=== PATIENT | female | born 1995 | race Caucasian/White ===

== ENCOUNTER 2022-12-02 15:04 | Emergency (ER) | payer OTHER, SELFPAY ==
--- NOTE | 2022-12-02 15:26 | ECG_ITS ---
Test Reason : PALPATATIONS Blood Pressure : / mmHG Vent. Rate : 095 BPM Atrial Rate : 095 BPM P-R Int : 116 ms QRS Dur : 070 ms QT Int : 342 ms P-R-T Axes : 039 044 008 degrees QTc Int : 429 ms Normal sinus rhythm Possible Left atrial enlargement Borderline ECG No previous ECGs available Referred By: Jeffery Garcia Electronically Signed By:Antonio Tang
--- NOTE | 2022-12-02 15:26 | ED.GENADULT ---
HPI - General Adult General Chief complaint: General Medical <BROOKLYN Santacruz - Last Filed: 12/02/22 15:33> Stated complaint: Dizziness/High heart rate <BROOKLYN Santacruz - Last Filed: 12/02/22 15:33> Time Seen by Provider: 12/02/22 21:12 <BROOKLYN Santacruz - Last Filed: 12/02/22 15:33> Source: patient <Crissy Joseph MD - Last Filed: 12/02/22 22:47> Mode of arrival: ambulatory <Crissy Joseph MD - Last Filed: 12/02/22 22:47> History of Present Illness HPI narrative: 27-year-old female who presents with fatigue, malaise and increased shortness of breath sub the past couple of days and notes that she is 20 weeks currently being followed at [facility]. Otherwise she denies any fevers but states she has had chills with some mild urinary symptoms. She denies vaginal bleeding and reports positive movement and denies abdominal cramping. <Crissy Joseph MD - Last Filed: 12/02/22 22:47> Related Data Home medications: Previous Rx's Medication Instructions Recorded nitrofurantoin 100 mg PO Q12H 7 days #14 caps 12/02/22 monohydrate/macrocrystals 100 mg capsule (Macrobid) <BROOKLYN Santacruz - Last Filed: 12/02/22 15:33> Allergies/adverse reactions: Allergies Allergy/AdvReac Type Severity Reaction Status Date / Time No Known Allergies Allergy Verified 12/02/22 15:34 <BROOKLYN Santacruz - Last Filed: 12/02/22 15:33> Review of Systems Review of Systems: Pertinent positives and negatives as stated in HPI <Crissy Joseph MD - Last Filed: 12/02/22 22:47> PMFSH Past Medical History Source: nursing notes reviewed <Crissy Joseph MD - Last Filed: 12/02/22 22:47> Social History Social History: Social History Advance Directives: No Advance Directives Information Provided: Yes <BROOKLYN Santacruz - Last Filed: 12/02/22 15:33> Physical Exam ED Vital Signs: Vital Signs - 24 hr 12/02/22 15:32 12/02/22 21:00 12/02/22 21:27 Temperature 98.0 F 98.4 F 98 F Pulse Rate 106 H 86 99 Respiratory Rate 18 18 18 Blood Pressure 110/57 L 114/65 117/59 L Pulse Oximetry 97 100 100 Oxygen Delivery Method Room Air Room Air Room Air BMI result Body Mass Index 32.2 <BROOKLYN Santacruz - Last Filed: 12/02/22 15:33> Vital Signs - 24 hr 12/02/22 15:32 12/02/22 21:00 12/02/22 21:27 Temperature 98.0 F 98.4 F 98 F Pulse Rate 106 H 86 99 Respiratory Rate 18 18 18 Blood Pressure 110/57 L 114/65 117/59 L Pulse Oximetry 97 100 100 Oxygen Delivery Method Room Air Room Air Room Air BMI result Body Mass Index 32.2 VITAL SIGNS: Reviewed. GENERAL: Well developed, well nourished, in no acute distress. HEAD: Normocephalic/atraumatic EYES: PERRLA, EOMI LUNGS: Normal breath sounds. No adventitious sounds or accessory muscle use. SpO2<100> CARDIOVASCULAR: Regular rate and rhythm without noted murmurs ABDOMEN: Soft, non-tender, gravid MUSCULOSKELETAL: No tenderness, deformities, or effusions noted on gross inspection. EXTREMITIES: No cyanosis, clubbing or edema. SKIN: Inspection of the skin reveals no rashes NEUROLOGIC: Alert and oriented x 4. Strength and sensation to light touch were grossly intact x 4. <Crissy Joseph MD - Last Filed: 12/02/22 22:47> Course Course Course Narrative: This is an RME: Additional HPI, ROS, PE not included below will be deferred to primary provider. This is a 27-year-old female currently 28 weeks (currently followed by OBGYN) presenting to the emergency department complaints of lightheadedness, fatigue, malaise, chest discomfort, palpitations this has been going on for the past few days worsening. She also reports some associated shortness of breath. Physical exam benign plan basic labs, urine. Will do viral test <BROOKLYN Santacruz - Last Filed: 12/02/22 15:33> Medications Administered Discontinued Medications Generic Name Dose Route Start Last Admin Trade Name Freq PRN Reason Stop Dose Admin Sodium Chloride 1,000 mls @ 999 mls/hr 12/02/22 15:30 12/02/22 22:10 Ns IV 12/02/22 16:30 Infused .Q1H1M ANGELIA Infusion Sodium Chloride 1,000 mls @ 999 mls/hr 12/02/22 21:00 12/02/22 21:50 Ns IV 12/02/22 22:00 999 mls/hr .Q1H1M ANGELIA Administration <BROOKLYN Santacruz - Last Filed: 12/02/22 15:33> Medications Administered Discontinued Medications Generic Name Dose Route Start Last Admin Trade Name Freq PRN Reason Stop Dose Admin Sodium Chloride 1,000 mls @ 999 mls/hr 12/02/22 15:30 12/02/22 22:10 Ns IV 12/02/22 16:30 Infused .Q1H1M ANGELIA Infusion Sodium Chloride 1,000 mls @ 999 mls/hr 12/02/22 21:00 12/02/22 21:50 Ns IV 12/02/22 22:00 999 mls/hr .Q1H1M ANGELIA Administration <Crissy Joseph MD - Last Filed: 12/02/22 22:47> Medical Decision Making Medical Decision Making MDM Narrative: 27-year-old female and after review of all investigations my interpretation is this is a female who has COVID-19 positive, hemodynamically stable not hypoxic and not febrile and also has a UTI. Patient received IV fluids and on re-evaluation states that she is feeling much better. She will receive initial antibiotics here in their emergency room and then be discharged home on remaining course with strict instructions to follow-up with her research environmental scientist. She endorses that her next appointment is 12/04. <Crissy Joseph MD - Last Filed: 12/02/22 22:47> Differential Diagnosis Please see the discussion above <Crissy Joseph MD - Last Filed: 12/02/22 22:47> Lab Data Please see the discussion above <Crissy Joseph MD - Last Filed: 12/02/22 22:47> Result Diagrams: 12/02/22 16:42 12/02/22 16:42 <BROOKLYN Santacruz - Last Filed: 12/02/22 15:33> Labs: Lab Results 12/02/22 12/02/22 12/02/22 Range/Units 16:42 16:42 16:42 WBC 8.7 (4.8-10.8) X10*3/uL RBC 3.87 L (4.20-5.50) X10*6/uL Hgb 12.2 (12.0-16.0) g/dl Hct 35.7 L (37.0-47.0) % MCV 92.2 (80.0-98.0) fL MCH 31.5 (27.0-33.0) pg MCHC 34.2 (31.0-35.0) g/dl RDW 12.7 (11.0-16.0) % Plt Count 185 (160-400) X10*3/uL MPV 10.7 (9.4-12.3) fL Immature Gran % (Auto) 0.5 H (0.0-0.4) % Neut % (Auto) 77.3 H (45-73) % Lymph % (Auto) 15.8 L (20-40) % [place] % (Auto) 5.8 (2-11) % Eos % (Auto) 0.5 (0-4) % Baso % (Auto) 0.1 (0-2) % Lymph # (Auto) 1.4 (1.2-4.9) X10*3/uL [place] # (Auto) 0.5 (0.1-1.2) X10*3/uL Eos # (Auto) 0.0 (0.0-0.4) X10*3/uL Baso # (Auto) 0.0 (0.0-0.2) X10*3/uL Abs Immat Gran (auto) 0.04 H (0.00-0.03) X10*3/uL Absolute Neuts (auto) 6.8 (2.0-8.3) x10*3/uL Absolute Nucleated RBC 0.000 (0.0-0.012) X10*3/uL Nucleated RBC % (auto) 0.0 (0.0-0.2) /100WBC Sodium 135 (135-145) mmol/L Potassium 4.0 (3.3-5.1) mmol/L Chloride 104 (96-108) mmol/L Carbon Dioxide 22 (22-29) mmol/L Anion Gap 13 (12-20) BUN 8 L (9-16) mg/dL Creatinine 0.63 (0.5-1.4) mg/dL Estim Creat Clear Calc 120.1 Estimated GFR > 60 Random Glucose 106 (60-115) mg/dL Calcium 8.8 (8.4-10.2) mg/dL Magnesium 1.7 (1.6-2.6) mg/dL Total Bilirubin 0.3 (0.0-1.0) mg/dL AST 22 (5-31) U/L ALT 19 (0-31) U/L Alkaline Phosphatase 94 (39-117) U/L Troponin I High Sens < 2.7 (<3.5-17.0) ng/L Total Protein 6.0 L (6.5-8.0) g/dL Albumin 3.4 L (3.5-5.0) g/dL Beta HCG, Quant 8435 mIU/mL Urine Color Urine Appearance Urine pH (5.0-9.0) Ur Specific [place] (1.005-1.025) Urine Protein (Neg-Trace) mg/dL Urine Glucose (UA) (Negative) mg/dL Urine Ketones (Negative) mg/dL Urine Blood (Negative) Urine Nitrite (Negative) Ur Leukocyte Esterase (Negative) Urine RBC (0-2) /HPF Urine WBC (0-5) /HPF Ur Squamous Epith Cells (0-2) /HPF Urine Bacteria (None Seen) Hyaline Casts (0-2) /LPF COVID-19 (MAME) (Negative) COVID-19 Clin Com Influenza Type A (SEBASTIAN) (Negative) Influenza Type B (SEBASTIAN) (Negative) Influenza A & B Note 12/02/22 12/02/22 12/02/22 Range/Units 16:42 16:42 20:55 WBC (4.8-10.8) X10*3/uL RBC (4.20-5.50) X10*6/uL Hgb (12.0-16.0) g/dl Hct (37.0-47.0) % MCV (80.0-98.0) fL MCH (27.0-33.0) pg MCHC (31.0-35.0) g/dl RDW (11.0-16.0) % Plt Count (160-400) X10*3/uL MPV (9.4-12.3) fL Immature Gran % (Auto) (0.0-0.4) % Neut % (Auto) (45-73) % Lymph % (Auto) (20-40) % [place] % (Auto) (2-11) % Eos % (Auto) (0-4) % Baso % (Auto) (0-2) % Lymph # (Auto) (1.2-4.9) X10*3/uL [place] # (Auto) (0.1-1.2) X10*3/uL Eos # (Auto) (0.0-0.4) X10*3/uL Baso # (Auto) (0.0-0.2) X10*3/uL Abs Immat Gran (auto) (0.00-0.03) X10*3/uL Absolute Neuts (auto) (2.0-8.3) x10*3/uL Absolute Nucleated RBC (0.0-0.012) X10*3/uL Nucleated RBC % (auto) (0.0-0.2) /100WBC Sodium (135-145) mmol/L Potassium (3.3-5.1) mmol/L Chloride (96-108) mmol/L Carbon Dioxide (22-29) mmol/L Anion Gap (12-20) BUN (9-16) mg/dL Creatinine (0.5-1.4) mg/dL Estim Creat Clear Calc Estimated GFR Random Glucose (60-115) mg/dL Calcium (8.4-10.2) mg/dL Magnesium (1.6-2.6) mg/dL Total Bilirubin (0.0-1.0) mg/dL AST (5-31) U/L ALT (0-31) U/L Alkaline Phosphatase (39-117) U/L Troponin I High Sens (<3.5-17.0) ng/L Total Protein (6.5-8.0) g/dL Albumin (3.5-5.0) g/dL Beta HCG, Quant mIU/mL Urine Color Yellow Urine Appearance Cloudy Urine pH 6.0 (5.0-9.0) Ur Specific [place] 1.020 (1.005-1.025) Urine Protein Negative (Neg-Trace) mg/dL Urine Glucose (UA) Negative (Negative) mg/dL Urine Ketones Negative (Negative) mg/dL Urine Blood Negative (Negative) Urine Nitrite Negative (Negative) Ur Leukocyte Esterase Moderate (2+) H (Negative) Urine RBC 0-2 (0-2) /HPF Urine WBC 11-20 H (0-5) /HPF Ur Squamous Epith Cells 11-20 (0-2) /HPF Urine Bacteria 1+ (None Seen) Hyaline Casts 0-2 (0-2) /LPF COVID-19 (MAME) Positive A (Negative) COVID-19 Clin Com See Note Influenza Type A (SEBASTIAN) Negative (Negative) Influenza Type B (SEBASTIAN) Negative (Negative) Influenza A & B Note See Note <BROOKLYN Santacruz - Last Filed: 12/02/22 15:33> Lab Results 12/02/22 12/02/22 12/02/22 Range/Units 16:42 16:42 16:42 WBC 8.7 (4.8-10.8) X10*3/uL RBC 3.87 L (4.20-5.50) X10*6/uL Hgb 12.2 (12.0-16.0) g/dl Hct 35.7 L (37.0-47.0) % MCV 92.2 (80.0-98.0) fL MCH 31.5 (27.0-33.0) pg MCHC 34.2 (31.0-35.0) g/dl RDW 12.7 (11.0-16.0) % Plt Count 185 (160-400) X10*3/uL MPV 10.7 (9.4-12.3) fL Immature Gran % (Auto) 0.5 H (0.0-0.4) % Neut % (Auto) 77.3 H (45-73) % Lymph % (Auto) 15.8 L (20-40) % [place] % (Auto) 5.8 (2-11) % Eos % (Auto) 0.5 (0-4) % Baso % (Auto) 0.1 (0-2) % Lymph # (Auto) 1.4 (1.2-4.9) X10*3/uL [place] # (Auto) 0.5 (0.1-1.2) X10*3/uL Eos # (Auto) 0.0 (0.0-0.4) X10*3/uL Baso # (Auto) 0.0 (0.0-0.2) X10*3/uL Abs Immat Gran (auto) 0.04 H (0.00-0.03) X10*3/uL Absolute Neuts (auto) 6.8 (2.0-8.3) x10*3/uL Absolute Nucleated RBC 0.000 (0.0-0.012) X10*3/uL Nucleated RBC % (auto) 0.0 (0.0-0.2) /100WBC Sodium 135 (135-145) mmol/L Potassium 4.0 (3.3-5.1) mmol/L Chloride 104 (96-108) mmol/L Carbon Dioxide 22 (22-29) mmol/L Anion Gap 13 (12-20) BUN 8 L (9-16) mg/dL Creatinine 0.63 (0.5-1.4) mg/dL Estim Creat Clear Calc 120.1 Estimated GFR > 60 Random Glucose 106 (60-115) mg/dL Calcium 8.8 (8.4-10.2) mg/dL Magnesium 1.7 (1.6-2.6) mg/dL Total Bilirubin 0.3 (0.0-1.0) mg/dL AST 22 (5-31) U/L ALT 19 (0-31) U/L Alkaline Phosphatase 94 (39-117) U/L Troponin I High Sens < 2.7 (<3.5-17.0) ng/L Total Protein 6.0 L (6.5-8.0) g/dL Albumin 3.4 L (3.5-5.0) g/dL Beta HCG, Quant 8435 mIU/mL Urine Color Urine Appearance Urine pH (5.0-9.0) Ur Specific [place] (1.005-1.025) Urine Protein (Neg-Trace) mg/dL Urine Glucose (UA) (Negative) mg/dL Urine Ketones (Negative) mg/dL Urine Blood (Negative) Urine Nitrite (Negative) Ur Leukocyte Esterase (Negative) Urine RBC (0-2) /HPF Urine WBC (0-5) /HPF Ur Squamous Epith Cells (0-2) /HPF Urine Bacteria (None Seen) Hyaline Casts (0-2) /LPF COVID-19 (MAME) (Negative) COVID-19 Clin Com Influenza Type A (SE[facility]STIAN) (Negative) Influenza Type B (SEBASTIAN) (Negative) Influenza A & B Note 12/02/22 12/02/22 12/02/22 Range/Units 16:42 16:42 20:55 WBC (4.8-10.8) X10*3/uL RBC (4.20-5.50) X10*6/uL Hgb (12.0-16.0) g/dl Hct (37.0-47.0) % MCV (80.0-98.0) fL MCH (27.0-33.0) pg MCHC (31.0-35.0) g/dl RDW (11.0-16.0) % Plt Count (160-400) X10*3/uL MPV (9.4-12.3) fL Immature Gran % (Auto) (0.0-0.4) % Neut % (Auto) (45-73) % Lymph % (Auto) (20-40) % [place] % (Auto) (2-11) % Eos % (Auto) (0-4) % Baso % (Auto) (0-2) % Lymph # (Auto) (1.2-4.9) X10*3/uL [place] # (Auto) (0.1-1.2) X10*3/uL Eos # (Auto) (0.0-0.4) X10*3/uL Baso # (Auto) (0.0-0.2) X10*3/uL Abs Immat Gran (auto) (0.00-0.03) X10*3/uL Absolute Neuts (auto) (2.0-8.3) x10*3/uL Absolute Nucleated RBC (0.0-0.012) X10*3/uL Nucleated RBC % (auto) (0.0-0.2) /100WBC Sodium (135-145) mmol/L Potassium (3.3-5.1) mmol/L Chloride (96-108) mmol/L Carbon Dioxide (22-29) mmol/L Anion Gap (12-20) BUN (9-16) mg/dL Creatinine (0.5-1.4) mg/dL Estim Creat Clear Calc Estimated GFR Random Glucose (60-115) mg/dL Calcium (8.4-10.2) mg/dL Magnesium (1.6-2.6) mg/dL Total Bilirubin (0.0-1.0) mg/dL AST (5-31) U/L ALT (0-31) U/L Alkaline Phosphatase (39-117) U/L Troponin I High Sens (<3.5-17.0) ng/L Total Protein (6.5-8.0) g/dL Albumin (3.5-5.0) g/dL Beta HCG, Quant mIU/mL Urine Color Yellow Urine Appearance Cloudy Urine pH 6.0 (5.0-9.0) Ur Specific [place] 1.020 (1.005-1.025) Urine Protein Negative (Neg-Trace) mg/dL Urine Glucose (UA) Negative (Negative) mg/dL Urine Ketones Negative (Negative) mg/dL Urine Blood Negative (Negative) Urine Nitrite Negative (Negative) Ur Leukocyte Esterase Moderate (2+) H (Negative) Urine RBC 0-2 (0-2) /HPF Urine WBC 11-20 H (0-5) /HPF Ur Squamous Epith Cells 11-20 (0-2) /HPF Urine Bacteria 1+ (None Seen) Hyaline Casts 0-2 (0-2) /LPF COVID-19 (MAME) Positive A (Negative) COVID-19 Clin Com See Note Influenza Type A (SEBASTIAN) Negative (Negative) Influenza Type B (SEBASTIAN) Negative (Negative) Influenza A & B Note See Note <Crissy Joseph MD - Last Filed: 12/02/22 22:47> Independent Interpretation I performed an independent interpretation of an: EKG <Crissy Joseph MD - Last Filed: 12/02/22 22:47> Interpretation: Normal sinus rhythm, HR-95, no STEMI, DE/QRS/QTC are within normal limits. <Crissy Joseph MD - Last Filed: 12/02/22 22:47> Discharge Plan Discharge Clinical Impression: , Lab test positive for detection of COVID-19 virus, UTI (urinary tract infection), Viral syndrome <BROOKLYN Santacruz - Last Filed: 12/02/22 15:33> Patient Disposition: Home, Self-Care <BROOKLYN Santacruz - Last Filed: 12/02/22 15:33> Instructions: Viral Syndrome (ED), Urinary Tract Infection in (ED), at 27 to 30 Weeks (ED), COVID-19 (Coronavirus Disease 2019) (ED) <BROOKLYN Santacruz - Last Filed: 12/02/22 15:33> Additional Instructions: 1. You must isolate for 5 days as you have been diagnosed with COVID-19. 2. Complete the entire course of antibiotics as ordered for your UTI. Increase the amount of water that you are drinking. 3. Follow-up with your research environmental scientist. Return to the ER for any worsening symptoms. <BROOKLYN Santacruz Last Filed: 12/02/22 15:33> Prescriptions: New nitrofurantoin monohyd/m-cryst [Macrobid] 100 mg capsule 100 mg PO Q12H 7 Days Qty: 14 0RF Rx Instructions: must administer with a meal/food <BROOKLYN Santacruz Last Filed: 12/02/22 15:33>
[2022-12-02 15:32] VITALS: BP 110/57; PULSE 106; RESP 18; TEMP 36.7; O2SAT 97; BMI 32.2
[2022-12-02 16:47] LABS: MANUAL DIFF FLAG NO
[2022-12-02 17:01] LABS: Basophils Percent Auto 0.1 % (0-2); COVID-19 Test Positive (Negative); Eosinophils Percent Auto 0.5 % (0-4); Hematocrit 35.7 % (37.0-47.0); Hemoglobin 12.2 g/dl (12.0-16.0); IDNOW Serial# 08D9AD1C; Imm Gran Abs Auto 0.04 X10*3/uL (0.00-0.03); Imm Gran Pct Auto 0.5 % (0.0-0.4); Lymphocytes Absolute Auto 1.4 X10*3/uL (1.2-4.9); Lymphocytes Percent Auto 15.8 % (20-40); Mean Corpuscular HGB Conc 34.2 g/dl (31.0-35.0); Mean Corpuscular Hemoglobin 31.5 pg (27.0-33.0); Mean Corpuscular Volume 92.2 fL (80.0-98.0); Mean Platelet Volume 10.7 fL (9.4-12.3); Monocytes Absolute Auto 0.5 X10*3/uL (0.1-1.2); Monocytes Percent Auto 5.8 % (2-11); Neutrophils Absolute Auto 6.8 x10*3/uL (2.0-8.3); Neutrophils Percent Auto 77.3 % (45-73); Platelet Count 185 X10*3/uL (160-400); Red Blood Count 3.87 X10*6/uL (4.20-5.50); Red Cell Distribution Width 12.7 % (11.0-16.0); White Blood Count 8.7 X10*3/uL (4.8-10.8)
[2022-12-02 17:08] LABS: IDNOW Serial# 6674DD1D; Influenza A Negative (Negative); Influenza B2 Negative (Negative)
[2022-12-02 17:09] LABS: Alanine Aminotransferase 19 U/L (0-31); Albumin Level 3.4 g/dL (3.5-5.0); Alkaline Phosphatase 94 U/L (39-117); Anion Gap 13 (12-20); Aspartate Amino Transferase 22 U/L (5-31); Bilirubin Total 0.3 mg/dL (0.0-1.0); Blood Urea Nitrogen 8 mg/dL (9-16); Calcium 8.8 mg/dL (8.4-10.2); Carbon Dioxide 22 mmol/L (22-29); Chloride 104 mmol/L (96-108); Creatinine Clr Calc Pharmacy 120.1; Estimated Glomerular Filt Rate > 60; Glucose Random 106 mg/dL (60-115); HCG Quantitative 8435 mIU/mL; Magnesium 1.7 mg/dL (1.6-2.6); Sodium 135 mmol/L (135-145)
[2022-12-02 17:16] LABS: Troponin-I High Sensitivity < 2.7 ng/L (<3.5-17.0)
--- NOTE | 2022-12-02 20:04 | MHC.EDTECH ---
pt said she not able to give urine sample at this time .
[2022-12-02 21:00] VITALS: BP 114/65; PULSE 86; RESP 18; TEMP 36.9; O2SAT 100
[2022-12-02] MEDS: 0.9 % Sodium Chloride 1,000 ML 999 ML IV ×2 (21:00→21:50)
[2022-12-02 21:08] LABS: Appearance Urine Cloudy; Color Urine Yellow; Glucose Urine UA Negative (Negative); Leukocyte Esterase Urine Moderate (2+) (Negative); Nitrite Urine Negative (Negative); UMIC TRIGGER UACC YES; Urine Blood Negative (Negative); Urine Ketones Negative (Negative); Urine Protein Negative (Neg-Trace)
[2022-12-02 21:23] LABS: Bacteria Urine 1+ (None Seen); Hyaline Casts Urine 0-2 /LPF (0-2); RBC Urine 0-2 /HPF (0-2); UACC Culture Trigger YES
[2022-12-02 21:27] VITALS: BP 117/59; PULSE 99; RESP 18; TEMP 36.6; O2SAT 100
[2022-12-02] MEDS: Nitrofurantoin Monohyd/M-Cryst 100 MG CAPSULE PO (23:12)
[2022-12-02] MEDS: Acetaminophen 325 MG TABLET 975 MG PO (23:12)
== END 2022-12-02 23:24 | disposition home or self-care (01) ==
PROVIDERS: Physician Assistant; Emergency Provider Student in an Organized Health Care Education/Training Program
DX: O98.512 Other viral diseases complicating pregnancy, second trimester (principal); U07.1 COVID-19; O23.42 Unspecified infection of urinary tract in pregnancy, second trimester; N39.0 Urinary tract infection, site not specified; Z3A.20 20 weeks gestation of pregnancy
CPT/HCPCS: 80053; 81001; 83735; 84484; 84702; 85025; 87086; 87502; 87635; 93005; 96360; 99284

== ENCOUNTER 2023-01-09 10:16 | Outpatient (REF) | payer OTHER, SELFPAY ==
[2023-01-09 13:39] LABS: MANUAL DIFF FLAG NO
[2023-01-09 13:42] LABS: Basophils Percent Auto 0.1 % (0-2); Eosinophils Absolute Auto 0.1 X10*3/uL (0.0-0.4); Eosinophils Percent Auto 0.6 % (0-4); Hematocrit 37.4 % (37.0-47.0); Hemoglobin 12.8 g/dl (12.0-16.0); Imm Gran Abs Auto 0.05 X10*3/uL (0.00-0.03); Imm Gran Pct Auto 0.6 % (0.0-0.4); Lymphocytes Absolute Auto 1.5 X10*3/uL (1.2-4.9); Lymphocytes Percent Auto 16.8 % (20-40); Mean Corpuscular HGB Conc 34.2 g/dl (31.0-35.0); Mean Corpuscular Hemoglobin 31.3 pg (27.0-33.0); Mean Corpuscular Volume 91.4 fL (80.0-98.0); Mean Platelet Volume 10.7 fL (9.4-12.3); Monocytes Absolute Auto 0.6 X10*3/uL (0.1-1.2); Monocytes Percent Auto 6.9 % (2-11); Neutrophils Absolute Auto 6.7 x10*3/uL (2.0-8.3); Platelet Count 168 X10*3/uL (160-400); Red Blood Count 4.09 X10*6/uL (4.20-5.50); Red Cell Distribution Width 12.9 % (11.0-16.0)
[2023-01-09 14:31] LABS: Alanine Aminotransferase 11 U/L (0-31); Albumin Level 3.3 g/dL (3.5-5.0); Alkaline Phosphatase 133 U/L (39-117); Anion Gap 13 (12-20); Aspartate Amino Transferase 18 U/L (5-31); Bilirubin Total 0.5 mg/dL (0.0-1.0); Blood Urea Nitrogen 6 mg/dL (9-16); Calcium 8.7 mg/dL (8.4-10.2); Carbon Dioxide 21 mmol/L (22-29); Chloride 108 mmol/L (96-108); Cholesterol 241 mg/dL; Estimated Glomerular Filt Rate > 60; Glucose Fasting 64 mg/dL (60-99); HDL Cholesterol 66 mg/dL; LDL Cholesterol Calculated 135 mg/dl; Potassium 3.8 mmol/L (3.3-5.1); Sodium 138 mmol/L (135-145); Total Protein 5.9 g/dL (6.5-8.0); Triglycerides 200 mg/dL
[2023-01-09 14:37] LABS: TSH reflex Free T4 1.15 uIU/mL (0.32-4.0)
== END 2023-01-09 10:17 | disposition home or self-care (01) ==
LOC: HO.WFDLDS 10:16
PROVIDERS: Visit Provider Nurse Practitioner Family
DX: Z34.90 Encounter for supervision of normal pregnancy, unspecified, unspecified trimester (principal)
CPT/HCPCS: 36415; 80053; 80061; 84443; 85025

== ENCOUNTER 2023-07-21 13:10 | Outpatient (AMB) | payer OTHER, SELFPAY ==
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
[2023-07-21 13:17] VITALS: BP 108/64; PULSE 67; RESP 13; TEMP 36.5; O2SAT 99; BMI 32.0
== END 2023-07-21 14:06 | disposition home or self-care (01) ==
PROVIDERS: PCP Nurse Practitioner Family; Visit Provider Nurse Practitioner Family
DX: M54.2 Cervicalgia (principal); M54.9 Dorsalgia, unspecified; Z12.4 Encounter for screening for malignant neoplasm of cervix
CPT/HCPCS: 99213

== ENCOUNTER 2023-09-28 13:03 | Outpatient (AMB) | payer OTHER, SELFPAY ==
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
--- OUTSIDE RECORDS SUMMARY | 2023-09-28 13:04 | XMS_ITS | Continuity of Care Document ---
Author Name Unknown Organization [facility] Address [address] [place] [address]- Care Team Providers Care Construction Site Manager Name Role Phone Not on Staff, PCP Primary Care Physician Unavail able Encounter [facility] [place] Date(s): 09/18/22 - 10/18/[address] [address]- Allergies, Adverse Reactions, Alerts No Known Allergies Immunizations Given and Recorded Vaccine Date Status Refusal Reason influenza virus vaccine, inactivated 08/13/22 Give n Medications Multivitamins with Folic Acid 1 mg oral tablet 1 tablet, By Mouth, Daily, # 90 tablet, 3 Refills, Maintenance, 07/30/22 13:27:00 EST, Tablet, [facility] #[id number], Partial fill upon patient request if the prescription is for a schedule II opioid drug., 1 tablet By Mouth Daily, 68.6, kg, ... Start Date: 07/30/22 Status: Ordered Problem List Condition Confirmation Course Effective Dates Status Health [facility] Informant Obese class I Confirmed Active Social History Social History Type Response Smoking Status Never (less than 100 in lifetime) entered on: 07/30/22 Sex Female Patient Care team information Care Team Personnel Name: Not on Staff, PCP Position: S Physician (General Medicine) Member Role: PCP Care Team Related Persons Name: CHANCE SAENZ Address: home [address] [place] [address]
--- OUTSIDE RECORDS SUMMARY | 2023-09-28 13:04 | XMS_ITS | Continuity of Care Document ---
Author Name Unknown Organization [facility] Address [address] [place] [address]- Care Team Providers Care Systems Test Technician Name Role Phone Not on Staff, PCP Primary Care Physician Unavail able Encounter [facility] [place] Date(s): 12/03/22 - 01/02/[address] [address]- Allergies, Adverse Reactions, Alerts No Known Allergies Immunizations Given and Recorded Vaccine Date Status Refusal Reason tetanus/diphtheria/pertussis, acel(Tdap) 12/18/22 Given influenza virus vaccine, inactivated 08/13/22 Give n Medications MiraLax oral powder for reconstitution = 17 Gm, By Mouth, Daily, dissolve in water before taking, # 255 Gm, 0 Refills, Maintenance, 12/18/22 10:07:00 EDT, REC Powder, [facility] #[id number], Partial fill upon patient request if the prescription is for a schedule II opioid drug., 17 Gm... Start Date: 12/18/22 Status: Ordered Multivitamins with Folic Acid 1 mg oral tablet 1 tablet, By Mouth, Daily, # 90 tablet, 3 Refills, Maintenance, 07/30/22 13:27:00 EST, Tablet, [facility] #[id number], Partial fill upon patient request if the [...] 01/01/23 16:27:00 EDT, Route to Pharmacy Electronically, [facility] #[id number], Partial fill upon patient request if th... Start Date: 01/01/23 Stop Date: 03/02/23 Status: Ordered Problem List Condition Confirmation Course Effective Dates Status Health [facility] Informant Obese class II Confirmed Active Social History Social History Type Response Smoking Status Never (less than 100 in lifetime) entered on: 07/30/22 Sex Female Patient Care team information Care Team Personnel Name: Not on Staff, PCP Position: [facility] Physician (General Medicine) Member Role: PCP Care Team Related Persons Name: CHNACE SAENZ Address: home [address] [place] [address]
[2023-09-28 13:05] VITALS: BP 114/62; BMI 29.3
--- NOTE | 2023-09-28 13:05 | MHC.OFFVIS ---
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 History was somewhat confusing though in retrospect she had her last period in March and she has not had a period since and this is most likely explainable by the fact that she is lactating and feeding the baby pretty exclusively by breast milk. She is in a committed relationship. She would like STI testing and she will go today. She has not complaining of any abnormal discharge. She had a primary for placenta previa but she started bleeding 1 week before her planned so that the was done on an emergency basis. She delivered in December. She said that last year she had an abnormal Pap smear with pre cancerous cells at the very end of the visit she shared that she had had a colposcopy during the and also 1 after the in February and they said that that 1 was fine. The Pap smear had already been obtained and submitted by that point. She would like to be on some method of control she currently is not using anything although she later shared that she uses condoms. She has been having sex fairly regularly most days. She says she does not remember anyone telling her that it would be grossman to not get for a good amount of time after having the primary . [facility] Medical History (Updated 09/28/23 @ 13:[address] CNM) delivery delivered Hip pain, right Neck pain Back pain Surgical History (Updated 09/28/23 @ 13:[address] CNM) Hx of section No pertinent past surgical history Social History Housing: House Patient Tobacco Use Status: Never used Tobacco e-Cigarette/Vaping Use: Never Used service: Yes Current occupational status: employed Current occupation: [employer] Cognitive needs: No Hearing needs: No Vision needs: No Female Reproductive History Menstrual Age of Menarche: 11 Duration of menses: 3-5 days Date of last menstrual period: 04/29/23 control method: none Total pregnancies: 1 Full term: 1 Number of Living Children: 1 History of abnormal pap smear: Yes Physical Exam Vital Signs: Last Vital Signs BP 114/62 09/28/23 13:05 BMI result Body Mass Index 29.3 Const General: healthy appearing, comfortable, no acute distress, well developed and alert Nutritional Appearance: average body habitus Orientation/consciousness: patient oriented x3 Limitations: no limitations HEENT Head: Yes normocephalic Neck Neck: Yes normal visual inspection Chest Chest palpation & inspection: normal inspection of the chest Breast/axilla inspection: normal inspection of the breasts and normal inspection of the axillae Breast/axilla palpation: normal palpation of the breasts and normal palpation of the axillae Resp Effort & Inspection: normal respiratory effort GI Inspection: Yes normal to inspection, No Abdominal wall edema and No distended Palpation (GI): Soft to palpation and nontender Other: Normal external exam vagina pink moist cervix appears parous pink smooth normal appearing mucus. Cervix is very posterior uterus is anteverted but they also very posterior in positioning adnexa not enlarged nontender good tone with Kegel. She has a small keloided low transverse scar General: Yes bladder normal to palpation External Female Exam: normal external appearance and normal appearance of the urethra Speculum Exam - Vagina: normal appearance of the vagina, normal palpation and normal vaginal discharge Speculum Exam - Cervix: normal appearance of the cervix, normal palpation and nontender Bimanual exam- vagina & uterus: normal bimanual exam, normal palpation, uterine size normal, bladder normal to palpation, consistency normal, normal palpation, uterine mobility normal, uterine shape normal, No Cervical tenderness present, non-tender and no cervical motion tenderness Bimanual Exam- Adnexa, other: normal adnexae, no masses, normal and No adnexal tenderness Neuro General: patient oriented x3 Results AMB Test Urine AMB Test Urine Negative Last Edit by CONCETTA Bynum on 09/28/23 14:15 Results Reviewed Results Reviewed: Laboratory Last Values Tst Clinic Negative 09/28/23 13:45 Assessment & Plan Assessment & Plan (1) Pap smear for cervical cancer screening: Comment: States she was told she had precancerous cells at [facility] last year. Code(s): Z12.4 - Encounter for screening for malignant neoplasm of cervix (2) Encounter for screening examination for sexually transmitted disease: Code(s): Z11.3 - Encounter for screening for infections with a predominantly sexual mode of transmission (3) Well woman exam with routine gynecological exam: Code(s): Z01.419 - Encounter for gynecological examination (general) (routine) without abnormal findings (4) Hx of section: Comment: One week before planned for placenta previa March 2023. Code(s): Z98.891 - History of uterine scar from previous surgery (5) Lactating mother: Comment: Wants control and wants to not suppress her breast milk supply will start on POPs if test is negative and have her repeat it in 2 weeks. Code(s): Z39.1 - Encounter for care and examination of lactating mother (6) BCP ( control pills) initiation: Code(s): Z30.011 - Encounter for initial prescription of contraceptive pills Plan -----Discussed in this visit the following: healthy balanced diet, regular and consistent exercise, getting recommended health screens, doing the best she can for her particular health concerns, kegel exercises, pap smear screening and followup recommendations, mammography screening and SBE, normal changes in cycles in her life stage--- . Her history came out at different points during the visit with full details of her abnormal Pap smear follow-up at [facility] coming at the very end as she was leaving. Pap smear has already been sent and submitted on the basis of her history of abnormal Pap smear last year with pre cancerous cells. Will request records from [facility] as well. Discussed recommendations that it is best to wait at least 18 months between pregnancies if she wanted to have a chance of having a vaginal for the next delivery. She would like to not get right away she said initially she was using nothing though at the very end she also shared that she is using condoms. She is also nursing her baby fairly exclusively. We did a test here and it is negative given all of this and her desire to contraceptive I am prescribing progestin only control pills for her and she can start now and then repeat a test at home in 2 weeks and if it is still negative she can continue on with no worries or concerns about . Reviewed how to take the pill and that if she ever misses a pill she may spot and increases itch her chance of getting . She works out at [employer] in [place] and is trying to keep herself in shape. We will see her in 3 months and I reviewed danger signs of OCPs.. Orders: Orders CT NG by PCR Today Z11.3 - Encounter for screening for infections with a predominantly sexual mode of transmission Pap Smear Today Z12.4 - Encounter for screening for malignant neoplasm of cervix Syphilis Screen Today Z01.419 - Encounter for gynecological examination (general) (routine) without abnormal findings, Z11.3 - Encounter for screening for infections with a predominantly sexual mode of transmission, Z12.4 - Encounter for screening for malignant neoplasm of cervix, Z30.011 - Encounter for initial prescription of contraceptive pills, Z39.1 - Encounter for care and examination of lactating mother, Z98.891 - History of uterine scar from previous surgery AMB HCG Urine Test Today Z32.02 - Encounter for test, result negative Bacterial Vaginosis Panel Today Z11.3 - Encounter for screening for infections with a predominantly sexual mode of transmission Hepatitis B Surface Antigen Today Z01.419 - Encounter for gynecological examination (general) (routine) without abnormal findings, Z11.3 - Encounter for screening for infections with a predominantly sexual mode of transmission, Z12.4 - Encounter for screening for malignant neoplasm of cervix, Z30.011 - Encounter for initial prescription of contraceptive pills, Z39.1 - Encounter for care and examination of lactating mother, Z98.891 - History of uterine scar from previous surgery Hepatitis C Antibody Today Z01.419 - Encounter for gynecological examination (general) (routine) without abnormal findings, Z11.3 - Encounter for screening for infections with a predominantly sexual mode of transmission, Z12.4 - Encounter for screening for malignant neoplasm of cervix, Z30.011 - Encounter for initial prescription of contraceptive pills, Z39.1 - Encounter for care and examination of lactating mother, Z98.891 - History of uterine scar from previous surgery HIV Ab/Ag Today Z01.419 - Encounter for gynecological examination (general) (routine) without abnormal findings, Z11.3 - Encounter for screening for infections with a predominantly sexual mode of transmission, Z12.4 - Encounter for screening for malignant neoplasm of cervix, Z30.011 - Encounter for initial prescription of contraceptive pills, Z39.1 - Encounter for care and examination of lactating mother, Z98.891 - History of uterine scar from previous surgery Medications: New norethindrone (contraceptive) 0.35 mg PO DAILY 84 tabs 3RF PNV,calcium [id number] acid 27 mg iron- 1 mg ( Vitamins Plus Low Iron) 1 tab PO DAILY 90 tabs 2RF Coding Level of Care Code New Pt Prev Care 18-39yr([id number] Diagnoses Pap smear for cervical cancer screening Z12.4 Encounter for screening examination for sexually transmitted disease Z11.3 Well woman exam with routine gynecological exam Z01.419 Hx of section Z98.891 Lactating mother Z39.1 BCP ( control pills) initiation Z30.011
--- OUTSIDE RECORDS SUMMARY | 2023-09-28 13:05 | XMS_ITS | Continuity of Care Document ---
Author Name Unknown Organization [facility] Address [address] [place] [id number]- Care Team Providers Care Tie Mill Operator Name Role Phone Not on Staff, PCP Primary Care Physician Unavail able Encounter [facility] [place] Date(s): 12/17/22 - 01/16/[address] [address]- Allergies, Adverse Reactions, Alerts No Known Allergies Immunizations Given and Recorded Vaccine Date Status Refusal Reason tetanus/diphtheria/pertussis, acel(Tdap) 12/18/22 Given influenza virus vaccine, inactivated 08/13/22 Give n Medications MiraLax oral powder for reconstitution = 17 Gm, By Mouth, Daily, dissolve in water before taking, # 255 Gm, 0 Refills, Maintenance, 12/18/22 10:07:00 EDT, REC Powder, [facility] #[id number], Partial fill upon patient request if the prescription is for a schedule II opioid drug., 17 Gm... Start Date: 12/18/22 Status: Ordered Multivitamins with Folic Acid 1 mg oral tablet 1 tablet, By Mouth, Daily, # 90 tablet, 3 Refills, Maintenance, 07/30/22 13:27:00 EST, Tablet, [facility] #[id number], Partial fill upon patient request if the [...] 01/01/23 16:27:00 EDT, Route to Pharmacy Electronically, [facility] #[id number], Partial fill upon patient request if th... [...] Role: PCP Care Team Related Persons Name: LETTY CHANCE Address: home [address] [place] [address]
--- OUTSIDE RECORDS SUMMARY | 2023-09-28 13:05 | XMS_ITS | Continuity of Care Document ---
Author Name Unknown Organization [facility] Address [address] [place] [address]- Care Team Providers Care Open Soaper Tender Name Role Phone Not on Staff, PCP Primary Care Physician Unavail able Encounter [facility] [place] Date(s): 01/01/23 - 01/31/23 [facility] [address] [place] [address] Attending Physician: Cass Crawford Admitting Physician: Cass Crawford Referring Physician: AdmtrCass Allergies, Adverse Reactions, Alerts No Known Allergies Immunizations Given and Recorded Vaccine Date Status Refusal Reason tetanus/diphtheria/pertussis, acel(Tdap) 12/18/22 Given influenza virus vaccine, inactivated 08/13/22 Give n Medications acetaminophen 325 mg oral tablet 650 mg, By Mouth, Every 4 hours, (1-3), may give 325mg per patient preference and re-dose with 325mg within 4 hours, if needed. Patient should only receive a total of 650mg of Acetaminophen every 4 hours., # 50 tablet, Refills 0, Tot. Refills 0, Shawna... Start Date: 01/26/23 Status: Ordered docusate sodium 100 mg oral capsule 1 capsule = 100 mg, By Mouth, 2 times a day, # 60 capsule, 0 Refills, Maintenance, 01/26/23 2:50:00EDT, Capsule, [facility] #[id number], Partial fill upon patient request if the prescription isfor a schedule II opioid drug., 150, cm, 01/26/23 0... Start Date: 01/26/23 Status: Ordered MiraLax oral powder for reconstitution = 17 Gm, By Mouth, Daily, dissolve in water before taking, # 255 Gm, 0 Refills, Maintenance, 12/18/22 10:07:00 EDT, REC Powder, [facility] #[id number], Partial fill upon patient request if the prescription is for a schedule II opioid drug., 17 Gm... Start Date: 12/18/22 Status: Ordered oxyCODONE 5 mg oral tablet 5 mg, 1, tablet, By Mouth, Every 3 hours, PRN, for severe post-operative pain (7-10), # 10 tablet, Refills 0, Tot. Refills 0, Maintenance, Pain , Severe, 01/26/23 2:51:00 EDT, Route to Pharmacy Electronically, [facility] #[id number], Partial fill... Start Date: 01/26/23 Status: Ordered Multivitamins with Folic Acid 1 mg oral tablet 1 tablet, By Mouth, Daily, # 90 tablet, 3 Refills, Maintenance, 07/30/22 13:27:00 EST, Tablet, [facility] #[id number], Partial fill upon patient request if the prescription is for a schedule II opioid drug., 1 tablet By Mouth Daily, 68.6, kg, ... Start Date: 07/30/22 Status: Ordered simethicone 80 mg oral tablet, chewable 80 mg, Chew, 3 times a day, PRN, # 48 tablet, Refills 0, Tot. Refills 0, Maintenance, Gas, 232:51:00 EDT, Route to Pharmacy Electronically, [facility] #[id number], Partial fill upon patient request if the prescription is for a schedule II... Start Date: 01/26/23 Status: Ordered Problem List Condition Confirmation Course [...] 100 in lifetime) entered on: 07/30/22 Sex Patient Care team information Care Team Personnel Name: Not on Staff, PCP Position: S Physician (General Medicine) Member Role: PCP Care Team Related Persons Name: CHANCE SAENZ Address: [address] [address] Name: CHANCE SAENZ Address: [id number] Address: home [address] [place] [address]
--- OUTSIDE RECORDS SUMMARY | 2023-09-28 13:05 | XMS_ITS | Continuity of Care Document ---
Author Name Unknown Organization [facility] Address [address] [place] [address]- Care Team Providers Care Steel Fitter Name Role Phone Not on Staff, PCP Primary Care Physician Unavail able Encounter [facility] [place] Date(s): 01/05/23 - 02/04/23 [facility] [address] [place] [address]- Allergies, Adverse Reactions, Alerts No Known Allergies [...] capsule, 0 Refills, Maintenance, 01/26/23 2:50:00EDT, Capsule, [facility] #[id number], Partial fill upon patient request if the prescription isfor a schedule II opioid drug., 150, cm, 01/26/23 0... Start Date: 01/26/23 Status: Ordered MiraLax oral powder for reconstitution = 17 Gm, By Mouth, Daily, dissolve in water before taking, # 255 Gm, 0 Refills, Maintenance, 12/18/22 10:07:00 EDT, REC Powder, [facility] #[id number], Partial fill upon patient request if the prescription is for a schedule II opioid drug., 17 Gm... Start Date: 12/18/22 Status: Ordered oxyCODONE 5 mg oral tablet 5 mg, 1, tablet, By Mouth, Every 3 hours, PRN, for severe post-operative pain (7-10), # 10 tablet, Refills 0, Tot. Refills 0, Maintenance, Pain , Severe, 01/26/23 2:51:00 EDT, Route to Pharmacy Electronically, [facility] #[id number], Partial fill... Start Date: 01/26/23 Status: Ordered Multivitamins with Folic Acid 1 mg oral tablet 1 tablet, By Mouth, Daily, # 90 tablet, 3 Refills, Maintenance, 07/30/22 13:27:00 EST, Tablet, [facility] #[id number], Partial fill upon patient request if the prescription is for a schedule II opioid drug., 1 tablet By Mouth Daily, 68.6, kg, ... Start Date: 07/30/22 Status: Ordered simethicone 80 mg oral tablet, chewable 80 mg, Chew, 3 times a day, PRN, # 48 tablet, Refills 0, Tot. Refills 0, Maintenance, Gas, 232:51:00 EDT, Route to Pharmacy Electronically, [facility] #[id number], Partial fill upon patient request if the [...] PCP Care Team Related Persons Name: CHANCE TRUONG III Address: [id number] Address: home [address] [place] [address] Name: CHANCE SAENZ Address: [address] [address]
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
--- OUTSIDE RECORDS SUMMARY | 2023-09-28 13:05 | XMS_ITS | Continuity of Care Document ---
Author Name Unknown Organization [facility] Address [address] [place] [phone]- Care Team Providers Care Book Trimmer Name Role Phone Not on Staff, PCP Primary Care Physician Unavail able [place] [facility] [place]/23 - 02/04/[address] [address]- Allergies, Adverse Reactions, Alerts No Known Allergies [...] capsule, 0 Refills, Maintenance, 01/26/23 2:50:00EDT, Capsule, [facility] #[id number], Partial fill upon patient request if the prescription isfor a schedule II opioid drug., 150, cm, 01/26/23 0... Start Date: 01/26/23 Status: Ordered MiraLax oral powder for reconstitution = 17 Gm, By Mouth, Daily, dissolve in water before taking, # 255 Gm, 0 Refills, Maintenance, 12/18/22 10:07:00 EDT, REC Powder, [facility] #[id number], Partial fill upon patient request if the prescription is for a schedule II opioid drug., 17 Gm... Start Date: 12/18/22 Status: Ordered oxyCODONE 5 mg oral tablet 5 mg, 1, tablet, By Mouth, Every 3 hours, PRN, for severe post-operative pain (7-10), # 10 tablet, Refills 0, Tot. Refills 0, Maintenance, Pain , Severe, 01/26/23 2:51:00 EDT, Route to Pharmacy Electronically, [facility] #[id number], Partial fill... Start Date: 01/26/23 Status: Ordered Multivitamins with Folic Acid 1 mg oral tablet 1 tablet, By Mouth, Daily, # 90 tablet, 3 Refills, Maintenance, 07/30/22 13:27:00 EST, Tablet, [facility] #[id number], Partial fill upon patient request if the prescription is for a schedule II opioid drug., 1 tablet By Mouth Daily, 68.6, kg, ... Start Date: 07/30/22 Status: Ordered simethicone 80 mg oral tablet, chewable 80 mg, Chew, 3 times a day, PRN, # 48 tablet, Refills 0, Tot. Refills 0, Maintenance, Gas, 232:51:00 EDT, Route to Pharmacy Electronically, [facility] #[id number], Partial fill upon patient request if the [...] Related Persons Name: CHANCE TRUONG III Address: [place] [address] Address: [address] Name: CHANCE SAENZ Address: home [address] [place] [address]
--- OUTSIDE RECORDS SUMMARY | 2023-09-28 13:05 | XMS_ITS | Continuity of Care Document ---
Author Name Unknown Organization [facility] Address [address] [place] [phone] Care Team Providers Care Director Of Employee Development Name Role Phone Not on Staff, PCP Primary Care Physician Unavail able [place] [facility] [place] Date(s): 09/02/22 - 10/02/22 [facility] [address] [address]- Allergies, Adverse Reactions, Alerts No Known Allergies Immunizations Given and Recorded Vaccine Date Status Refusal Reason influenza virus vaccine, inactivated 08/13/22 Give n Medications Multivitamins with Folic Acid 1 mg oral tablet 1 tablet, By Mouth, Daily, # 90 tablet, 3 Refills, Maintenance, 07/30/22 13:27:00 EST, Tablet, [facility] #[id number], Partial fill upon patient request if the [...] Persons Name: CHANCE SAENZ Address: home [address] [place] [address]
--- OUTSIDE RECORDS SUMMARY | 2023-09-28 13:05 | XMS_ITS | Continuity of Care Document ---
Author Name Unknown Organization [facility] Address [address] [place] [phone]- Care Team Providers Care Butt Maker Name Role Phone Not on Staff, PCP Primary Care Physician Unavail able Encounter [place] Date(s): 12/26/22 - 01/25/[address] [address]- Allergies, Adverse Reactions, Alerts No Known Allergies [...] capsule, 0 Refills, Maintenance, 01/26/23 2:50:00EDT, Capsule, [facility] #[id number], Partial fill upon patient request if the prescription isfor a schedule II opioid drug., 150, cm, 01/26/23 0... Start Date: 01/26/23 Status: Ordered MiraLax oral powder for reconstitution = 17 Gm, By Mouth, Daily, dissolve in water before taking, # 255 Gm, 0 Refills, Maintenance, 12/18/22 10:07:00 EDT, REC Powder, [facility] #[id number], Partial fill upon patient request if the prescription is for a schedule II opioid drug., 17 Gm... Start Date: 12/18/22 Status: Ordered oxyCODONE 5 mg oral tablet 5 mg, 1, tablet, By Mouth, Every 3 hours, PRN, for severe post-operative pain (7-10), # 10 tablet, Refills 0, Tot. Refills 0, Maintenance, Pain , Severe, 01/26/23 2:51:00 EDT, Route to Pharmacy Electronically, [facility] #[id number], Partial fill... Start Date: 01/26/23 Status: Ordered Multivitamins with Folic Acid 1 mg oral tablet 1 tablet, By Mouth, Daily, # 90 tablet, 3 Refills, Maintenance, 07/30/22 13:27:00 EST, Tablet, [facility] #[id number], Partial fill upon patient request if the prescription is for a schedule II opioid drug., 1 tablet By Mouth Daily, 68.6, kg, ... Start Date: 07/30/22 Status: Ordered simethicone 80 mg oral tablet, chewable 80 mg, Chew, 3 times a day, PRN, # 48 tablet, Refills 0, Tot. Refills 0, Maintenance, Gas, 232:51:00 EDT, Route to Pharmacy Electronically, [facility] #[id number], Partial fill upon patient request if the [...] Persons Name: CHANCE SAENZ Address: home [address] [place] [address] Name: FLORI SAENZA GABRIEL Address: [id number] Address: [address] [place] [address] [place]
--- OUTSIDE RECORDS SUMMARY | 2023-09-28 13:05 | XMS_ITS | Continuity of Care Document ---
Author Name Unknown Organization [facility] Address [address] [place] [address]- Care Team Providers Care Food Sales Clerk Name Role Phone Not on Staff, PCP Primary Care Physician Unavail able [place] [facility] [place](s): 12/02/22 - 01/01/[address] [address]- Allergies, Adverse Reactions, Alerts No Known Allergies Immunizations Given and Recorded Vaccine Date Status Refusal Reason tetanus/diphtheria/pertussis, acel(Tdap) 12/18/22 Given influenza virus vaccine, inactivated 08/13/22 Give n Medications MiraLax oral powder for reconstitution = 17 Gm, By Mouth, Daily, dissolve in water before taking, # 255 Gm, 0 Refills, Maintenance, 12/18/22 10:07:00 EDT, REC Powder, [facility] #[id number], Partial fill upon patient request if the prescription is for a schedule II opioid drug., 17 Gm... Start Date: 12/18/22 Status: Ordered Multivitamins with Folic Acid 1 mg oral tablet 1 tablet, By Mouth, Daily, # 90 tablet, 3 Refills, Maintenance, 07/30/22 13:27:00 EST, Tablet, [facility] #[id number], Partial fill upon patient request if the [...] 01/01/23 16:27:00 EDT, Route to Pharmacy Electronically, [facility] #[id number], Partial fill upon patient request if th... [...] Personnel Name: Not on Staff, PCP Position: [facility] Physician (General Medicine) Member Role: PCP Care Team Related Persons Name: CHANCE SAENZ Address: home [address] [place] [address]
--- OUTSIDE RECORDS SUMMARY | 2023-09-28 13:05 | XMS_ITS | Continuity of Care Document ---
Author Name Unknown Organization [facility] Address [address] [place] [address]- Care Team Providers Care Gas Main Fitter Name Role Phone Not on Staff, PCP Primary Care Physician Unavail able Encounter [facility] Date(s): 06/25/22 - 07/25/[address] [address]- Allergies, Adverse Reactions, Alerts No Known Allergies Social History Social History Type Response Sex Female Patient Care team information Care Team Personnel Name: Not on Staff, PCP Position: S Physician (General Medicine) Member Role: PCP Care Team Related Persons Name: CHANCE SAENZ Address: home [address] [place] [address]
--- OUTSIDE RECORDS SUMMARY | 2023-09-28 13:05 | XMS_ITS | Continuity of Care Document ---
Author Name Unknown Organization [facility] ter Address [address] [place] [address]- Care Team Providers Care Reinforcement Maker Name Role Phone Not on Staff, PCP Primary Care Physician Unavail able Encounter [facility] [place] Date(s): 01/07/23 - 02/26/[address] [address]- Attending Physician: Katie Main DO Referring Physician: Katie Main DO Allergies, Adverse Reactions, Alerts No Known Allergies Immunizations Given and Recorded Vaccine Date Status Refusal Reason tetanus/diphtheria/pertussis, acel(Tdap) 12/18/22 Given influenza virus vaccine, inactivated 08/13/22 Give n Medications NuvaRing 0.015 mg-0.120 mg vaginal ring See Instructions, 1 each Vaginally Insert a new ring on day 1 and use for 3 weeks, remove for 1 week, then repeat cycle, # 3 each, 4 Refills, Maintenance, 02/23/23 15:13:00 EDT, [facility] #[id number], Partial fill upon patient request if the... Start Date: 02/23/23 Status: Ordered Multivitamins with Folic Acid 1 mg oral tablet 1 tablet, By Mouth, Daily, # 90 tablet, 3 Refills, Maintenance, 07/30/22 13:27:00 EST, Tablet, [facility] #[id number], Partial fill upon patient request if the [...] Confirmed Active Obese class II Confirmed Active exam Confirmed Active Social History Social History Type Response Smoking Status Never (less than 100 in lifetime) entered on: 07/30/22 Sex Patient Care team information Care Team Personnel Name: Not on Staff, PCP Position: [facility] Physician (General Medicine) Member Role: PCP Care Team Related Persons Name: CHANCE TRUONG Address: [address] Address: [address] Name: CHANCE SAENZ Address: [place] [address]
--- OUTSIDE RECORDS SUMMARY | 2023-09-28 13:05 | XMS_ITS | Continuity of Care Document ---
Author Name Unknown Organization [facility] Address [address] [place] [address]- Care Team Providers Care Weed Inspector Name Role Phone Not on Staff, PCP Primary Care Physician Unavail able [place] [facility] [place] 03/10/23 - 04/09/23 [facility] [address] [address]- Attending Physician: Cass Crawford Admitting Physician: Cass Crawford Referring Physician: AdmtrCass Allergies, Adverse Reactions, Alerts No Known Allergies Immunizations Given and Recorded Vaccine Date Status Refusal Reason tetanus/diphtheria/pertussis, acel(Tdap) 12/18/22 Given influenza virus vaccine, inactivated 08/13/22 Give n Medications Apri 0.15 mg-0.03 mg oral tablet 1 tablet, By Mouth, Daily, # 84 tablet, 3 Refills, Maintenance, 03/09/23 11:36:00 EDT, [facility] #[id number], Partial fill upon patient request if the prescription is for a schedule II opioid drug., 1 tablet By Mouth Daily, 150, cm, 2... Start Date: 03/09/23 Status: Ordered Multivitamins with Folic Acid 1 mg oral tablet 1 tablet, By Mouth, Daily, # 90 tablet, 3 Refills, Maintenance, 07/30/22 13:27:00 EST, Tablet, [facility] #[id number], Partial fill upon patient request if the [...] Team Related Persons Name: CHANCE TRUONG Address: [address] Address: home [address] [place] [address] Name: CHANCE SAENZ Address: [address] [address]
--- OUTSIDE RECORDS SUMMARY | 2023-09-28 13:05 | XMS_ITS | Continuity of Care Document ---
Author Name Unknown Organization [facility] ter Address [address] [place] [address]- Care Team Providers Care Equipment Service Engineer Name Role Phone Virginia RICHARDSON, Jonel Mcgrath Primary Care Physician Encounter [facility] [place] Date(s): 07/06/23 - 07/06/[address] [address]- Discharge Disposition: A-D/C Home Attending Physician: Cassius Bolton MD Admitting Physician: Cassius Bolton MD Referring Physician: Not on Staff, Referring MD Allergies, Adverse Reactions, Alerts No Known Allergies Immunizations Given and Recorded Vaccine Date Status Refusal Reason tetanus/diphtheria/pertussis, acel(Tdap) 12/18/22 Given influenza virus vaccine, inactivated 08/13/22 Give n Medications Apri 0.15 mg-0.03 mg oral tablet 1 tablet, By Mouth, Daily, # 84 tablet, 3 Refills, Maintenance, 03/09/23 11:36:00 EDT, Tablet, [facility] #[id number], Partial fill upon patient request if the prescription is for a schedule II opioid drug., 1 tablet By Mouth Daily, 150, cm, 01/30... Start Date: 03/09/23 Status: Ordered Multivitamins with Folic Acid 1 mg oral tablet 1 tablet, By Mouth, Daily, # 90 tablet, 3 Refills, Maintenance, 07/30/22 13:27:00 EST, Tablet, [facility] #[id number], Partial fill upon patient request if the [...] class II Confirmed Active exam Confirmed Active Vital Signs Most recent to oldest [Reference Range]: 1 2 Weight 74.8 kg (07/06/23 5:33 PM) 74.8 kg (07/06/23 2:40 PM) Oxygen Saturation [94-100 %] 98 % (07/06/23 2:40 PM) Pulse Rate [55-90 bpm] 60 bpm (07/06/23 2:40 PM) Blood Pressure [90-138/55-84 mm Hg] 113/ 66mm Hg (07/06/23 2:40 PM) Respiratory Rate [16-30 br/min] 18 br/mi n (07/06/23 2:40 PM) Temperature [96.8-100.4 DegF] 98.4 DegF (07/06/23 2:40 PM) Mode of Delivery (Oxygen) Room air (07/06/23 2:40 PM) Blood pressure sites Arm, left (07/06/23 2:40 PM) Temperature Route Oral (07/06/23 2:40 PM) Dry Weight 74.8 kg (07/06/23 5:33 PM) 74.8 kg (07/06/23 2:40 PM) Weight Obtained Via Standing scale (07/06/23 2:40 PM) Dry Weight Obtained Via Standing scale (07/06/23 2:40 PM) Social History Social History Type Response Smoking Status Never (less than 100 in lifetime) entered on: 07/30/22 Sex Note * Cassius Bolton MD: PERFORM, SIGN, VERIFY Event Display: Patient Education Handout Authored Date: [id number] * Cassius Bolton MD: PERFORM Event Display: Patient Education Leaflets Authored Date: [id number] Neck Sprain or Strain ?? [id number] Neck Sprain or Strain A sudden force that causes turning or bending of the neck can cause a sprain or strain. An example would be the force from a car accident. This can stretch or tear muscles called a strain. It can also stretch or tear ligaments called a sprain. Either of these can cause neck pain. Sometimes neck pain occurs after a simple awkward movement. In either case, muscle spasm is commonly present and contributes to the pain.?? Unless you had a forceful physical injury (for instance, a car accident or fall), X-rays are often not ordered for the initial evaluation of neck pain. If pain continues and doesn't respond to medical treatment, X-rays and other tests may be done later. Home care ??? You may feel more soreness and spasm the first few days after the injury. Rest until symptoms start to improve. ??? When lying down, use a comfortable pillow or a rolled towel that supports the head and keeps the spine in a neutral position. The position of the head should not be tilted forward or backward. ??? Apply an ice pack over the injured area for 15 to 20 minutes every 3 to 6 hours. Do this for the first 24 to 48 hours. To make an ice pack, put ice cubes in a plastic bag that seals at the top. Wrap the bag in a thin towel or cloth before using it. Don???t put ice or an ice pack directly on the skin. After 48 hours, apply heat (warm shower or warm bath) for 15 to 20 minutes several times a day. Or alternate ice and heat. ??? You may use pnio-isj-avbufyj pain medicine to control pain, unless another pain medicine was prescribed. Non- steroidal anti-inflammatory drugs (NSAIDs) like ibuprofen or naproxen may work better than acetaminophen. If you have chronic liver orkidney disease, ever had a stomach ulcer or gastrointestinal bleeding, or take blood thinners, talkwith your healthcare provider before using these medicines. ??? If a soft cervical collar was prescribed, only wear it for periods of increased pain. It should not be worn for more than 3 hours a day, or for longer than 1 to 2 weeks. ?? Follow-up care Follow up with your healthcare provider, or as directed. Physical therapy may be needed. Sometimes fractures don???t show up on the first X-ray. Bruises and sprains can sometimes hurt as much as a fracture. These injuries can take time to heal completely. If your symptoms don???t improveor they get worse, talk with your provider. You may need a repeat X-ray or other tests. If X-rays were taken, you will be told of any new findings that may affect your care. ?? Call 911 Call 911 if you have: ??? Neck swelling, difficulty or painful swallowing ??? Trouble breathing ???Chest pain ?? When to get medical advice Call your healthcare provider right away if any of these occur: ??? Pain gets worse or spreads intoyour arms or legs ??? Weakness or numbness in 1 or both arms or legs ?? Last Reviewed Date: 2021 ?? [id number] [employer]. All rights reserved. This information is not intended as a substitute for professional medical care. Always follow your healthcare professional's instructions. ?? Patient Care team information Care Team Personnel Name: Virginia RICHARDSON , Jonel Mcgrath Position: [facility] Outreach Member Role: PCP Address: Address: [address] [place] [address]- Name: Kadi Arciniega RN Position: [facility] ED RN W/OE and Tasks Member Role: Patient Care Provider Name: Cassius Bolton MD Position: [facility] ED Medicine MD Member Role: Admitting Physician Address: Address: [address] [place] [address] [place] [address]- Care Team Related Persons Name: CHANCE TRUONG III Address: [address] Address: home [address] [place], [place] Name: CHANCE SAENZ Address: [address] [place], [place]
--- OUTSIDE RECORDS SUMMARY | 2023-09-28 13:05 | XMS_ITS | Continuity of Care Document ---
Author Name Unknown Organization [facility] ter Address [address] [place] [address]- Care Team Providers Care Pre Sales Technical Consultant Name Role Phone Not on Staff, PCP Primary Care Physician Unavail able Encounter [facility] [place] Date(s): 12/26/22 - 02/04/[address] [address] Attending Physician: Azalia Meier CNM Admitting Physician: Azalia Meier CNM Referring Physician: Azalia Meier CNM Allergies, Adverse Reactions, Alerts No Known Allergies [...] capsule, 0 Refills, Maintenance, 01/26/23 2:50:00EDT, Capsule, [facility] #[id number], Partial fill upon patient request if the prescription isfor a schedule II opioid drug., 150, cm, 01/26/23 0... Start Date: 01/26/23 Status: Ordered MiraLax oral powder for reconstitution = 17 Gm, By Mouth, Daily, dissolve in water before taking, # 255 Gm, 0 Refills, Maintenance, 12/18/22 10:07:00 EDT, REC Powder, [facility] #[id number], Partial fill upon patient request if the prescription is for a schedule II opioid drug., 17 Gm... Start Date: 12/18/22 Status: Ordered oxyCODONE 5 mg oral tablet 5 mg, 1, tablet, By Mouth, Every 3 hours, PRN, for severe post-operative pain (7-10), # 10 tablet, Refills 0, Tot. Refills 0, Maintenance, Pain , Severe, 01/26/23 2:51:00 EDT, Route to Pharmacy Electronically, [facility] #[id number], Partial fill... Start Date: 01/26/23 Status: Ordered Multivitamins with Folic Acid 1 mg oral tablet 1 tablet, By Mouth, Daily, # 90 tablet, 3 Refills, Maintenance, 07/30/22 13:27:00 EST, Tablet, [facility] #[id number], Partial fill upon patient request if the prescription is for a schedule II opioid drug., 1 tablet By Mouth Daily, 68.6, kg, ... Start Date: 07/30/22 Status: Ordered simethicone 80 mg oral tablet, chewable 80 mg, Chew, 3 times a day, PRN, # 48 tablet, Refills 0, Tot. Refills 0, Maintenance, Gas, 232:51:00 EDT, Route to Pharmacy Electronically, [facility] #[id number], Partial fill upon patient request if the [...] PCP Care Team Related Persons Name: LETTY GRIFFIHTS IIITUSHARRUDDYJUSTO Address: [address] Address: home [address] [facility] [place] [address] [place] Name: CHANCE SAENZ Address: [address] [place] [address]
--- OUTSIDE RECORDS SUMMARY | 2023-09-28 13:05 | XMS_ITS | Continuity of Care Document ---
Author Name Unknown Organization [facility] Address [address] [place] [address]- Care Team Providers Care Teacher Tutor Name Role Phone Not on Staff, PCP Primary Care Physician Unavail able [place] [facility] [place] - 11/23/22 [facility] [address] [address]- Allergies, Adverse Reactions, Alerts No Known Allergies Immunizations Given and Recorded Vaccine Date Status Refusal Reason influenza virus vaccine, inactivated 08/13/22 Give n Medications Multivitamins with Folic Acid 1 mg oral tablet 1 tablet, By Mouth, Daily, # 90 tablet, 3 Refills, Maintenance, 07/30/22 13:27:00 EST, Tablet, [facility] #[id number], Partial fill upon patient request if the [...] Persons Name: CHANCE SAENZ Address: home [address] [place] [address]
--- OUTSIDE RECORDS SUMMARY | 2023-09-28 13:05 | XMS_ITS | Continuity of Care Document ---
Author Name Unknown Organization [facility] Address [address] [place] [address]- Care Team Providers Care Sloop Captain Name Role Phone Not on Staff, PCP Primary Care Physician Unavail able Encounter [facility] [place] Date(s): 03/04/23 - 04/03/23 [facility] [address] [address]- Allergies, Adverse Reactions, Alerts No Known Allergies Immunizations Given and Recorded Vaccine Date Status Refusal Reason tetanus/diphtheria/pertussis, acel(Tdap) 12/18/22 Given influenza virus vaccine, inactivated 08/13/22 Give n Medications Apri 0.15 mg-0.03 mg oral tablet 1 tablet, By Mouth, Daily, # 84 tablet, 3 Refills, Maintenance, 03/09/23 11:36:00 EDT, Tablet, [facility] #[id number], Partial fill upon patient request if the prescription is for a schedule II opioid drug., 1 tablet By Mouth Daily, 150, cm, 01/30... Start Date: 03/09/23 Status: Ordered Multivitamins with Folic Acid 1 mg oral tablet 1 tablet, By Mouth, Daily, # 90 tablet, 3 Refills, Maintenance, 07/30/22 13:27:00 EST, Tablet, [facility] #[id number], Partial fill upon patient request if the [...] Personnel Name: Not on Staff, PCP Position: [facility] Physician (General Medicine) Member Role: PCP Care Team Related Persons Name: CHANCE TRUONG Address: [address] Address: home [address] [place] [address] Name: CHANCE SAENZ Address: [place] [address]
--- OUTSIDE RECORDS SUMMARY | 2023-09-28 13:05 | XMS_ITS | Continuity of Care Document ---
Author Name Unknown Organization [facility] Address [address] [place] [address]- Care Team Providers Care Local Operator Name Role Phone Not on Staff, PCP Primary Care Physician Unavail able Encounter [facility] [place] Date(s): 02/24/23 - 03/26/23 [facility] [address] [address]- Allergies, Adverse Reactions, Alerts No Known Allergies Immunizations Given and Recorded Vaccine Date Status Refusal Reason tetanus/diphtheria/pertussis, acel(Tdap) 12/18/22 Given influenza virus vaccine, inactivated 08/13/22 Give n Medications Apri 0.15 mg-0.03 mg oral tablet 1 tablet, By Mouth, Daily, # 84 tablet, 3 Refills, Maintenance, 03/09/23 11:36:00 EDT, Tablet, [facility] #[id number], Partial fill upon patient request if the prescription is for a schedule II opioid drug., 1 tablet By Mouth Daily, 150, cm, 01/30... Start Date: 03/09/23 Status: Ordered Multivitamins with Folic Acid 1 mg oral tablet 1 tablet, By Mouth, Daily, # 90 tablet, 3 Refills, Maintenance, 07/30/22 13:27:00 EST, Tablet, [facility] #[id number], Partial fill upon patient request if the [...] Personnel Name: Not on Staff, PCP Position: [facility] Physician (General Medicine) Member Role: PCP Care Team Related Persons Name: CHANCE TRUONG Address: [address] Address: home [address] [place] [address] Name: CHANCE SAENZ Address: [place] [address]
--- OUTSIDE RECORDS SUMMARY | 2023-09-28 13:05 | XMS_ITS | Continuity of Care Document ---
Author Name Unknown Organization [facility] Address [address] [place] [address]- Care Team Providers Care Pipeline Technician Name Role Phone Not on Staff, PCP Primary Care Physician Unavail able Encounter [facility] [place] Date(s): 08/05/22 - 09/04/[address] [address] Allergies, Adverse Reactions, Alerts No Known Allergies Immunizations Given and Recorded Vaccine Date Status Refusal Reason influenza virus vaccine, inactivated 08/13/22 Give n Medications Multivitamins with Folic Acid 1 mg oral tablet 1 tablet, By Mouth, Daily, # 90 tablet, 3 Refills, Maintenance, 07/30/22 13:27:00 EST, Tablet, [facility] #[id number], Partial fill upon patient request if the [...] Persons Name: CHANCE SAENZ Address: [address] [place] [address]
--- OUTSIDE RECORDS SUMMARY | 2023-09-28 13:05 | XMS_ITS | Continuity of Care Document ---
Author Name Unknown Organization [facility] Address [address] [place] [address]- Care Team Providers Care Costume Shop Manager Name Role Phone Not on Staff, PCP Primary Care Physician Unavail able Encounter [facility] [place] Date(s): 08/28/22 - 09/27/[address] [address] Allergies, Adverse Reactions, Alerts No Known Allergies Immunizations Given and Recorded Vaccine Date Status Refusal Reason influenza virus vaccine, inactivated 08/13/22 Give n Medications Multivitamins with Folic Acid 1 mg oral tablet 1 tablet, By Mouth, Daily, # 90 tablet, 3 Refills, Maintenance, 07/30/22 13:27:00 EST, Tablet, [facility] #[id number], Partial fill upon patient request if the [...] Persons Name: CHANCE SAENZ Address: [address] [place] [address]
--- OUTSIDE RECORDS SUMMARY | 2023-09-28 13:05 | XMS_ITS | Continuity of Care Document ---
Author Name Unknown Organization [facility] Address [address] [place] [address]- Care Team Providers Care Power Generating Plant Operator Name Role Phone Not on Staff, PCP Primary Care Physician Unavail able Encounter [facility] Date(s): 10/11/22 - 11/10/[address] [address]- Allergies, Adverse Reactions, Alerts No Known Allergies Immunizations Given and Recorded Vaccine Date Status Refusal Reason influenza virus vaccine, inactivated 08/13/22 Give n Medications Multivitamins with Folic Acid 1 mg oral tablet 1 tablet, By Mouth, Daily, # 90 tablet, 3 Refills, Maintenance, 07/30/22 13:27:00 EST, Tablet, [facility] #[id number], Partial fill upon patient request if the [...] Persons Name: CHANCE SAENZ Address: [address] [place] [address]
--- OUTSIDE RECORDS SUMMARY | 2023-09-28 13:05 | XMS_ITS | Continuity of Care Document ---
Author Name Unknown Organization [facility] Address [address] [place] [address]- Care Team Providers Care Permanent Mold Supervisor Name Role Phone Not on Staff, PCP Primary Care Physician Unavail able Encounter [facility] [place] Date(s): 01/07/23 - 02/06/[address] [address]- Allergies, Adverse Reactions, Alerts No Known Allergies [...] capsule, 0 Refills, Maintenance, 01/26/23 2:50:00EDT, Capsule, [facility] #[id number], Partial fill upon patient request if the prescription isfor a schedule II opioid drug., 150, cm, 01/26/23 0... Start Date: 01/26/23 Status: Ordered MiraLax oral powder for reconstitution = 17 Gm, By Mouth, Daily, dissolve in water before taking, # 255 Gm, 0 Refills, Maintenance, 12/18/22 10:07:00 EDT, REC Powder, [facility] #[id number], Partial fill upon patient request if the prescription is for a schedule II opioid drug., 17 Gm... Start Date: 12/18/22 Status: Ordered oxyCODONE 5 mg oral tablet 5 mg, 1, tablet, By Mouth, Every 3 hours, PRN, for severe post-operative pain (7-10), # 10 tablet, Refills 0, Tot. Refills 0, Maintenance, Pain , Severe, 01/26/23 2:51:00 EDT, Route to Pharmacy Electronically, [facility] #[id number], Partial fill... Start Date: 01/26/23 Status: Ordered Multivitamins with Folic Acid 1 mg oral tablet 1 tablet, By Mouth, Daily, # 90 tablet, 3 Refills, Maintenance, 07/30/22 13:27:00 EST, Tablet, [facility] #[id number], Partial fill upon patient request if the prescription is for a schedule II opioid drug., 1 tablet By Mouth Daily, 68.6, kg, ... Start Date: 07/30/22 Status: Ordered simethicone 80 mg oral tablet, chewable 80 mg, Chew, 3 times a day, PRN, # 48 tablet, Refills 0, Tot. Refills 0, Maintenance, Gas, 232:51:00 EDT, Route to Pharmacy Electronically, [facility] #[id number], Partial fill upon patient request if the [...] Related Persons Name: CHANCE TRUONG III Address: [place] [address] Address: home [address] [place] [address] Name: CHANCE SAENZ Address: [address] [place] [address]
--- OUTSIDE RECORDS SUMMARY | 2023-09-28 13:05 | XMS_ITS | Continuity of Care Document ---
Author Name Unknown Organization [facility] Address [address] [place] [id number]- Care Team Providers Care Cue Worker Name Role Phone Not on Staff, PCP Primary Care Physician Unavail able Encounter [facility] Date(s): 10/09/22 - 11/08/22 [facility] [address] [place] [address] Attending Physician: Cass Crawford Admitting Physician: Cass Crawford Referring Physician: AdmtrCass Allergies, Adverse Reactions, Alerts No Known Allergies Immunizations Given and Recorded Vaccine Date Status Refusal Reason influenza virus vaccine, inactivated 08/13/22 Give n Medications Multivitamins with Folic Acid 1 mg oral tablet 1 tablet, By Mouth, Daily, # 90 tablet, 3 Refills, Maintenance, 07/30/22 13:27:00 EST, Tablet, [facility] #[id number], Partial fill upon patient request if the [...] Personnel Name: Not on Staff, PCP Position: [facility] Physician (General Medicine) Member Role: PCP Care Team Related Persons Name: TAIWOHERNANDEZCHANCE Address: home [address] [place] [address]
--- OUTSIDE RECORDS SUMMARY | 2023-09-28 13:05 | XMS_ITS | Continuity of Care Document ---
Author Name Unknown Organization [facility] Address [address] [place] [id number]- Care Team Providers Care Insulation Worker Name Role Phone Not on Staff, PCP Primary Care Physician Unavail able Encounter [facility] Date(s): 07/01/22 - 07/02/[address] [address]- Discharge Disposition: A-D/C Home Attending Physician: Eun Mcdonough MD Admitting Physician: Eun Mcdonough MD Referring Physician: Eun Mcdonough MD Allergies, Adverse Reactions, Alerts No Known Allergies Medications No Known Medications Vital Signs Most recent to oldest [Reference Range]: 1 Weight 68.6 kg (07/01/22 8:56 PM) Oxygen Saturation [94-100 %] 100 % (07/01/22 8:56 PM) Pulse Rate [55-90 bpm] 71 bpm (07/01/22 8:56 PM) Blood Pressure [90-138/55-84 mm Hg] 120/ 67mm Hg (07/01/22 8:56 PM) Respiratory Rate [16-30 br/min] 18 br/mi n (07/01/22 8:56 PM) Temperature [96.8-100.4 DegF] 99.1 DegF (07/01/22 8:56 PM) Mode of Delivery (Oxygen) Room air (07/01/22 8:56 PM) Blood pressure sites Arm, right (07/01/22 8:56 PM) Temperature Route Oral (07/01/22 8:56 PM) Dry Weight 68.6 kg (07/01/22 8:56 PM) Weight Obtained Via Standing scale (07/01/22 8:56 PM) Dry Weight Obtained Via Standing scale (07/01/22 8:56 PM) Social History Social History Type Response Sex Female Patient Care team information Personnel Name: Not on Staff, PCP
--- OUTSIDE RECORDS SUMMARY | 2023-09-28 13:05 | XMS_ITS | Continuity of Care Document ---
Author Name Unknown Organization [facility] Address [address] [place] [address]- Care Team Providers Care Individual Small Group Instructor Name Role Phone Not on Staff, PCP Primary Care Physician Unavail able Encounter [facility] Date(s): 08/27/22 - 09/26/22 [facility] [address] [place], [place] [address] Allergies, Adverse Reactions, Alerts No Known Allergies Immunizations Given and Recorded Vaccine Date Status Refusal Reason influenza virus vaccine, inactivated 08/13/22 Give n Medications Multivitamins with Folic Acid 1 mg oral tablet 1 tablet, By Mouth, Daily, # 90 tablet, 3 Refills, Maintenance, 07/30/22 13:27:00 EST, Tablet, [facility] #[id number], Partial fill upon patient request if the [...] Persons Name: CHANCE SAENZ Address: home [address] [place] [address]
--- OUTSIDE RECORDS SUMMARY | 2023-09-28 13:05 | XMS_ITS | Continuity of Care Document ---
Author Name Unknown Organization [facility] Address [address] [place] [id number]- Care Team Providers Care Teletype Operator Name Role Phone Not on Staff, PCP Primary Care Physician Unavail able Encounter [facility] [place] Date(s): 12/11/22 - 01/10/[address] [address]- Allergies, Adverse Reactions, Alerts No Known Allergies Immunizations Given and Recorded Vaccine Date Status Refusal Reason tetanus/diphtheria/pertussis, acel(Tdap) 12/18/22 Given influenza virus vaccine, inactivated 08/13/22 Give n Medications MiraLax oral powder for reconstitution = 17 Gm, By Mouth, Daily, dissolve in water before taking, # 255 Gm, 0 Refills, Maintenance, 12/18/22 10:07:00 EDT, REC Powder, [facility] #[id number], Partial fill upon patient request if the prescription is for a schedule II opioid drug., 17 Gm... Start Date: 12/18/22 Status: Ordered Multivitamins with Folic Acid 1 mg oral tablet 1 tablet, By Mouth, Daily, # 90 tablet, 3 Refills, Maintenance, 07/30/22 13:27:00 EST, Tablet, [facility] #[id number], Partial fill upon patient request if the [...] 01/01/23 16:27:00 EDT, Route to Pharmacy Electronically, [facility] #[id number], Partial fill upon patient request if th... [...] Personnel Name: Not on Staff, PCP Position: [facility] Physician (General Medicine) Member Role: PCP Care Team Related Persons Name: CHANCE SAENZ Address: home [address] [place] [address]
--- OUTSIDE RECORDS SUMMARY | 2023-09-28 13:05 | XMS_ITS | Continuity of Care Document ---
Author Name Unknown Organization [facility] ter Address [address] [place] [address]- Care Team Providers Care Ibm [employer] Commerce Consultant Name Role Phone Not on Staff, PCP Primary Care Physician Unavail able Encounter [facility] Date(s): 07/01/22 - 07/01/[address] [address]- Discharge Disposition: Transferred to short-term general hospit Attending Physician: Cassius Bolton MD Admitting Physician: Cassius Bolton MD Referring Physician: Not on Staff, Referring MD Allergies, Adverse Reactions, Alerts No Known Allergies Vital Signs Most recent to oldest [Reference Range]: 1 2 Oxygen Saturation [94-100 %] 100 % (07/01/22 7:21 PM) 100 % (07/01/22 7:07 PM) Pulse Rate [55-90 bpm] 73 bpm (07/01/22 7:21 PM) 82 bpm (07/01/22 7:07 PM) Blood Pressure [90-138/55-84 mm Hg] 122/ 64mm Hg (07/01/22 7:21 PM) Respiratory Rate [16-30 br/min] 20 br/mi n (07/01/22 7:21 PM) Temperature [96.8-100.4 DegF] 98.9 DegF (07/01/22 7:21 PM) Mode of Delivery (Oxygen) Room air (07/01/22 7:21 PM) Room air (07/01/22 7:07 PM) Blood pressure sites Arm, left (07/01/22 7:21 PM) Temperature Route Oral (07/01/22 7:21 PM) Social History Social History Type Response Sex Female Patient Care team information Personnel Name: Not on Staff, PCP
--- OUTSIDE RECORDS SUMMARY | 2023-09-28 13:12 | XMS_ITS | Continuity of Care Document ---
Author Name Unknown Address [address] [place] [address] Organization Unknown Address [address] [place] [address] Care Team Providers Care Drying Room Supervisor Name Role Phone [facility] Primary Care Phy sician Chief Complaint and Reason for Visit Chief Complaint Lower Abdominal Pain Reason for Visit [id number] Allergies, Adverse Reactions, Alerts No known allergies Social History Smoking Status Unknown if ever smoked Observation Status Observation Response Date of Response Tobacco Status Never smoker July 24, 021 12:27pm Additional Data Assigned Sex Female Problems Active Problems Medical Problem Onset Date Status Ovarian cyst Active Inactive/Resolved Problems Medical Problem Onset Date Status Viral illness Resolved Medications Medication Status Dose Units Route Directions Qty Days St art Date End Date Instructions Benzocaine/Me nthol (Cepacol Ryan*) 1 Each LOZENGE Disconti nued 1 RYAN MT Every 4 Hours for Sore Throat 1 er 2018 10:22pm Septem bhavna 2019 Ketorolac Tromethamine (Toradol Tab*) 10 Mg TAB Disconti nued 10 MG PO Four Times Daily as needed for Pain 17 er 2018 10:22pm Mayem 2019 Loperamide Hcl (Imodium A-D*) 2 Mg CAP Disconti nued 2 MG PO Four Times Daily as needed for Diarrhea 8 er 2018 10:22pm Septem 2019 Ondansetron Hcl (Zofran Odt*) 4 Mg ODT Disconti nued 4 MG DISSOLV E Every 8 Hours as needed for Nausea/Vomi ting 8 er 2018 10:22pm Septem 2019 Immunizations Immunization Event Date Not Given Reason Dose Number Knitting Machine Tender Lot Number Vaccine Information Statement (VIS) Detail Procedures Procedure Date Performed Status INJECTION FOR HIP X-RAY July 19, 2021 comp leted MRI JOINT OF LWR EXTR W/DYE July 19, 2021 completed NEEDLE LOCALIZATION BY XRAY July 19, 2021 completed July 19, 2021 completed LOW OSMOLAR CONTRAST MATERIAL July 19 completed Magnetic resonance imaging of right hip with con trast July 19, 2021 completed Relevant Diagnostic Tests and/or Laboratory Data Laboratory Results Test Date/Time Result Interpretation Reference Range Result Comment Performing Site White Blood Count July 24, 2021 12:44pm 7.3 3.6-11.1 [facility] [address] [place] [address] 05110 Red Blood Count July 24, 2021 12:44pm 4.37 mU/L 3.69-4.88 [facility] [address] [place] [address] 46213 Hemoglobin July 24, 2021 12:44pm 13.4 11.4-14.4 [facility] [address] [place] [address] 60062 Hematocrit July 24, 2021 12:44pm 39.3 % 33.3-41.4 [facility] [address] [place] [address] 31639 Mean Corpuscular Volume July 24, 2021 12:44pm 89.9 79.3-94.8 [facility] [address] [place] [address] 95999 Mean Corpuscular Hemoglobin July 24, 2021 12:44pm 30.7 26.8-33.2 [facility] [address] [place] [address] 24951 Mean Corpuscular Hemoglobin Concent July 24, 2021 12:44pm 34.1 33.5-35.5 [facility] [address] [place] [address] 36350 Red Cell Distribution Width July 24, 2021 12:44pm 11.5 % 12.0-15.1 [facility] [address] [place] [address] 53349 Platelet Count July 24, 2021 12:44pm 216 165-353 [facility] [address] [place] [address] 90295 Mean Platelet Volume July 24, 2021 12:44pm 10.5 7.5-10.6 [facility] [address] [place] [address] 64890 Neutrophils (%) (Auto) July 24, 2021 12:44pm 65.2 % 43.2-71.5 [facility] [address] [place] [address] 51446 Immature Granulocytes % July 24, 2021 12:44pm 0.1 % 0-0 [facility] [address] [place] [address] 49490 Lymphocytes (%) (Auto) July 24, 2021 12:44pm 28.8 % 16.8-43.4 [facility] [address] [place] [address] 62189 Monocytes (%) (Auto) July 24, 2021 12:44pm 5.3 % 4.6-12.4 [facility] [address] [place] [address] 21979 Eosinophils (%) (Auto) July 24, 2021 12:44pm 0.3 % 0.7-7.8 [facility] [address] [place] [address] 04618 Basophils (%) (Auto) July 24, 2021 12:44pm 0.3 % 0.2-1.2 [facility] [address] [place] [address] 94611 Nucleated Red Blood Cells % (auto) July 24, 2021 12:44pm 0.0 0-0 [facility] [address] [place] [address] 56597 Neutrophils # (Auto) July 24, 2021 12:44pm 4.8 1.9-7.2 [facility] [address] [place] [address] 36231 Immature Granulocytes # July 24, 2021 12:44pm 0.0 0-0 [facility] [address] [place] [address] 77766 Lymphocytes # (Auto) July 24, 2021 12:44pm 2.1 1.1-2.7 [facility] [address] [place] [address] 19389 Monocytes # (Auto) July 24, 2021 12:44pm 0.4 0.3-0.8 [facility] [address] [place] [address] 62471 Eosinophils # (Auto) July 24, 2021 12:44pm 0.0 0.0-0.5 [facility] [address] [place] [address] 86536 Basophils # (Auto) July 24, 2021 12:44pm 0.0 0.0-0.1 [facility] [address] [place] [address] 03633 Nucleated Red Blood Cells # July 24, 2021 12:44pm 0.0 0-0 [facility] [address] [place] [address] 63429 Urine Color July 24, 2021 12:44pm Yellow [facility] [address] [place] [address] 43358 Urine Appearance July 24, 2021 12:44pm Clear [facility] [address] [place] [address] 59796 Urine Specific Barclay July 24, 2021 12:44pm 1.010 1.005-1.030 [facility] [address] [place] [address] 14404 Urine pH July 24, 2021 12:44pm 6.0 5.0-8.0 [facility] [address] [place] [address] 78078 Urine Leukocyte Esterase July 24, 2021 12:44pm NEGATIVE NEGATIVE [facility] [address] [place] [address] 88766 Urine Nitrite July 24, 2021 12:44pm NEGATIVE NEGATIVE [facility] [address] [place] [address] 45393 Urine Protein July 24, 2021 12:44pm NEGATIVE NEGATIVE [facility] [address] [place] [address] 26310 Urine Glucose (UA) July 24, 2021 12:44pm NEGATIVE NEGATIVE [facility] [address] [place] [address] 24007 Urine Ketones July 24, 2021 12:44pm NEGATIVE NEGATIVE [facility] [address] [place] [address] 79644 Urine Urobilinogen July 24, 2021 12:44pm NEGATIVE NEGATIVE [facility] [address] [place] [address] 98031 Urine Bilirubin July 24, 2021 12:44pm NEGATIVE NEGATIVE [facility] [address] [place] [address] 64199 Urine Blood July 24, 2021 12:44pm NEGATIVE NEGATIVE [facility] [address] [place] [address] 32265 Urine Ascorbic Acid Level July 24, 2021 12:44pm NEGATIVE [facility] [address] [place] [address] 33549 Epithelial Cells (Wet Prep) July 24, 2021 2:48pm 1-5 /[HPF] FEW TO MANY [facility] [address] [place] [address] 51313 White Blood Cells (Wet Prep) July 24, 2021 2:48pm 1-5 /[HPF] 1-5 [facility] [address] [place] [address] 15441 Red Blood Cells (Wet Prep) July 24, 2021 2:48pm NONE SEEN /[HPF] NONE SEEN [facility] [address] [place] [address] 07122 Bacteria (Wet Prep) July 24, 2021 2:48pm NONE SEEN /[HPF] [facility] [address] [place] [address] 19454 Clue Cells (Wet Prep) July 24, 2021 2:48pm NONE SEEN /[HPF] NONE SEEN [facility] [address] [place] [address] 30200 Trichomonas (Wet Prep) July 24, 2021 2:48pm NONE SEEN /[HPF] NONE SEEN [facility] [address] [place] [address] 89676 ABEL Fungal Elements July 24, 2021 2:48pm NONE SEEN /[HPF] NONE SEEN [facility] [address] [place] [address] 68656 Spermatozoa (Wet Prep) July 24, 2021 2:48pm NONE SEEN /[HPF] NONE SEEN [facility] [address] [place] [address] 07616 Sodium Level July 24, 2021 12:44pm 136 137-144 [facility] [address] [place] [address] 31427 Potassium Level July 24, 2021 12:44pm 3.7 3.1-5.1 [facility] [address] [place] [address] 81831 Chloride Level July 24, 2021 12:44pm 104 101-110 [facility] [address] [place] [address] 86382 Carbon Dioxide Level July 24, 2021 12:44pm 24 - [facility] [address] [place] [address] 80081 Glucose Level July 24, 2021 12:44pm 99 70-105 [facility] [address] [place] [address] 82916 Blood Urea Nitrogen July 24, 2021 12:44pm 11.0 7.0-18.7 [facility] [address] [place] [address] 86435 Creatinine July 24, 2021 12:44pm 0.79 0.57-1.11 [facility] [address] [place] [address] 38545 Estimated Creatinine Clearance Calc July 24, 2021 12:44pm 89.30 PT Ht: 152.4cm, PT Wt: 62.8KG [facility] [address] [place] [address] 17835 Anion Gap July 24, 2021 12:44pm 12 7-16 [facility] [address] [place] [address] 85666 Calcium Level July 24, 2021 12:44pm 9.0 8.4-10.2 [facility] [address] [place] [address] 49198 Total Bilirubin July 24, 2021 12:44pm 0.4 0.1-1.2 [facility] [address] [place] [address] 99676 Total Protein July 24, 2021 12:44pm 7.0 6.0-8.3 [facility] [address] [place] [address] 05956 Albumin July 24, 2021 12:44pm 4.1 3.2-5.2 [facility] [address] [place] [address] 49904 Globulin July 24, 2021 12:44pm 2.9 2.6-4.6 [facility] [address] [place] [address] 03762 Albumin/Globulin Ratio July 24, 2021 12:44pm 1.4 1.1-2.5 [facility] [address] [place] [address] 31455 Aspartate Amino Transf (AST/SGOT) July 24, 2021 12:44pm 20 U/L 5-34 [facility] [address] [place] [address] 38996 Alkaline Phosphatase July 24, 2021 12:44pm 44 U/L 40-150 [facility] [address] [place] [address] 02352 Alanine Aminotransferase (ALT/SGPT) July 24, 2021 12:44pm 13 U/L 0-55 [facility] [address] [place] [address] 54385 Lipase July 24, 2021 12:44pm 52 U/L 7-78 [facility] [address] [place] [address] 24727 Diagnostic Imaging Reports Report Dictated Date/Time Dictated By Status July 19, 2021 6:16pm GUS RITTER DO completed [address] [address] --------- Patient: AISHWARYA RAJPUT : 1995 Sex: F Address: [address] [place] [address] [place] [address] Unit #: [id number] [facility] SEQ #: [id number] Location: [facility] Room #: Ordering: HUMBERTO BARAHONA Diagnosis: PAIN IN R HIP ---- INJECTION HIP ARTHROGRAM RT Clinical Information: PAIN IN R HIP. Comparison: None. TECHNIQUE: Digital images acquired during fluoroscopy and stored on PACS. Procedure, risks, benefits and alternatives explained to patient who then gave written consent. The right hip marked; time-out called; correct marking verified. Entry site marked using fluoroscopic guidance. Hip prepped and draped using sterile technique. Local anesthesia achieved using 20 mls of 1% lidocaine injection. Hypodermic needle introduced into the joint space under direct fluoroscopic visualization. Minimal non-ionic contrast instilled to confirm intra-articular position. Dilute MultiHance solution then injected into hip joint. Needle removed and entry site covered with sterile bandage. No immediate complications noted. Patient immediately taken to the MRI suite for additional imaging. INJECTION LOCATION: Right hip NEEDLE TYPE: 22 gauge needle CONTRAST TYPE AND AMOUNT: 3 ml Omnipaque 300, 6 ml MultiHance in saline m ixture. PREPROCEDURAL PAIN ASSESSMENT: 7 out of 10 POST PROCEDURE PAIN ASSESSMENT: 7 out of 10 FLUOROSCOPY TIME: 0.3 minutes Reference air kerma: 2.731 mGy IMPRESSION: SUCCESSFUL NEEDLE PLACEMENT AND INJECTION FOR RIGHT HIP MR ARTHROGRAM. Preliminary signature by: Vero Ritter DO Final report electronically signed by: Vero Ritter DO on 07/19/2021 6:16 PM Signed by: GUS RITTER DO 07/19/21 [id number] cc: GUS RITTER JOSHUA D PA ~ Report Dictated Date/Time Dictated By Status July 20, 2021 10:21am GE RIVERO MD completed [address] [address] --------- Patient: DELGADOTORRES,AISHWARYA FREDY : 1995 Sex: F Address: [address] [place] [address] [place] [address] [facility] #: [id number] Unit #: [id number] REQ SEQ #: [id number] Location: [facility] Room #: Ordering: HUMBERTO BARAHONA Diagnosis: PAIN IN R HIP ---- CLINICAL HISTORY: Right hip/groin pain x1 year. TECHNIQUE: After injection of dilute gadolinium solution into the right hip joint under fluoroscopy by Dr. Pinto, coronal T1 and 3 plane fat-saturated T2-weighted images were performed of pelvis and right hip at 1.5 Mignon. Contrast: 1 cc MultiHance injected intra-articularly. COMPARISON: None. FINDINGS: Right acetabular labrum appears intact. No evidence of acute fracture, dislocation, focal bony lesion, or avascular necrosis. Small left hip joint effusion. Minimal osteoarthritis pubic symphysis. Partial sacralization lowest lumbar vertebral body on left. Mild spondylosis lower lumbar spine. 2.6 cm left ovarian cyst with minimal free fluid in pelvis. Bladder unremarkable. No evidence of adenopathy, soft tissue mass, or focal fluid collection. Mild soft tissue edema anterior to right hip consistent with sequelae of injection procedure. IMPRESSION: 1. No evidence of acute abnormality right hip. 2. Mild lumbar spondylosis with partial sacralization of fracture lowest lumbar vertebral body on left. 3. 2.6 cm left ovarian cyst with mild associated free fluid in pelvis. 4. Small left hip joint effusion. Final report electronically signed by: Ge Rivero MD on 07/20/2021 10:21 AM Signed by: GE RIVERO MD 07/20/21 1021 cc: HUMBERTO VOSS BRIAN MD ~ Report Dictated Date/Time Dictated By Status July 24, 2021 2:30pm ROMELIA VAZQUEZ MD completed [address] [id number] --------- Patient: AISHWARYA RAJPUT : 1995 Sex: F Address: [address] [place] [address] [place] [address] Unit #: [id number] RE SEQ #: [id number] Location: [facility] Room #: Ordering: SELVIN BELLA PA-C Diagnosis: ABDOMINAL PAIN ---- US PELVIC TRANSVAGINAL NON-OB Clinical Information: ABDOMINAL PAIN Comparison: None available Transabdominal and transvaginal pelvic sonography shows an anteflexed normal appearing uterus measuring 74 x 32 x 38mm. The endometrial stripe is smooth and normal measuring 8.9 mm. There is no free fluid in the cul-de-sac. There is a simple left ovarian 2.8 cm cyst ovaries appear within normal limits, each with a few simple subcentimeter follicles. The ovaries have normal color and duplex Doppler blood flow with arterial and venous waveforms, and no evidence of torsion. Impression: 2.8 cm simple left ovarian cyst, otherwise normal pelvic sonogram. Final report electronically signed by: Romelia Vazquez MD on 07/24/2021 2:30 PM Signed by: ROMELIA VAZQUEZ MD 07/24/21 [id number] cc: SELVIN BELLA PA-C, JOHN MD ~ Advance Directives Advance Directive Response Recorded Date/ Time PRIVACY NOTICE DATE 05/09/19May 8:26pm Insurance Providers Guarantor Kristy Rajput Fredy Address [address] [facility] [address] Contact Info. Home Phone: Payer Policy Id Coverage Id Subscriber's Name Subscriber Id Effective Date Expiration Date [id number] Aishwarya Rajput [id number] Encounters Encounter Location(s) Arrival/Admit Date Discharge/Depart Date Provider(s) Departed Emergency Room [facility] July 24, 2021 12:12pm July 24, 2021 3:24pm SELVIN BELLA PA-C Registered Clinic [facility] July 19, 2021 2:57pm HUMBERTO VOSS Mental Status Observation Response Date Recorded Level of Consciousness Alert July 24, 2021 3:22pm Appropriate July 24 021 3:22pm Awake July 24 021 3:22pm Plan of Treatment Future Tests Future scheduled test information is unavailable Pending Tests Test Name Date ordered Chlamydia trachomatis DNA (PCR) July 24, 2021 2:48pm Neisseria gonorrhoeae DNA (PCR) July 24, 2021 2:48pm Future Visits Future appointment information is unavailable Referrals to Other Providers Reason for Referral Referral Start Date Provider Provider Contact Information Provider Address CLINIC, [facility] Work Phone: [facility] [address] [facility] [address] [facility] [address] Future Procedures Future procedure information is unavailable Future Medications Future medication information is unavailable Patient Instructions OVARIAN CYST
--- OUTSIDE RECORDS SUMMARY | 2023-09-28 13:12 | XMS_ITS | Continuity of Care Document ---
Author Name Unknown Address [address] [place] [address] Phone Unavailable Organization [facility] Address [address] [place] [address] Phone Unavailable Care Team Providers Care R D Engineer Name Role Phone [facility] Primary Care Beth tanner Insurance Providers Guarantor Remi Rajput Address [address] [place] [address] Email [email or web address] Payer Policy Number [id number] Subscriber's Name Remi Rajput Relationship 18 Self / Same As Greg silver Advance Directives Directive Response Recorded Date/Ti me PRIVACY NOTICE DATE 05/09/19 05/09/19 8:2 6pm Chief Complaint and Reason for Visit Chief Complaint URI/Flu SX Reason for Visit [id number] Problems Medical Problem Onset Date Status Viral illness Unknown Acute Medications Current Home Medications Medication Dose Units Route Directions Days Qty Instructi ons Start Date Benzocaine/Menth ol (Cepacol Ryan*) 1 Each Lozenge 1 Ryan In Mouth Or Throat Every 4 Hours for Sore Throat 1 Box 05/09/19 Ketorolac Tromethamine (Toradol Tab*) 10 Mg Tab 10 Mg Oral Four Times Daily as needed for Pain 17 Tab 05/09/19 Loperamide Hcl (Imodium A-D*) 2 Mg Cap 2 Mg Oral Four Times Daily as needed for Diarrhea 8 Cap 05/09/19 Ondansetron Hcl (Zofran Odt*) 4 Mg Odt 4 Mg Dissolve In Mouth Every 8 Hours as needed for Nausea/Vomitin g 8 Odt 05/09/19 Social History Social History Problem Response Recorded Date/Time Onset Date Status Tobacco Status Never smoker 05/09/2019 7:28pm Not Applicab le Not Applicable Hospital Discharge Instructions No hospital discharge instruction information available. Plan of Care Discharge Date 05/09/19 10:49pm Disposition 01 HOME, SELF-CARE Condition at Discharge Stable Instructions/Education Provided Viral Sy ndrome (ED) Forms Provided ANTIBIOTIC BASICS PT SUMMARY FOR DC WORKNOTE Prescriptions See Medication Secti on Referrals [facility] Order Date: 2 to 4 Days Address: [address] [address] Functional Status Query Response Date Recorded Level of Consciousness Alert Appropriate Awake May 09, 2019 10:54pm Allergies, Adverse Reactions, Alerts No known allergies. Immunizations Query Response on File Recorded Date/T mojgan Date of Tetanus, diptheria vaccination UNKNOWN 05/09/19 7:28pm Vital Signs Acute Vital Signs Vital Response Date/Time Temperature Source Tympanic 05/09/2019 8: 05pm Height 5 ft 0 in 05/09/2019 7:29p m Weight 137.57 lb 05/09/2019 7:29p m Body Mass Index 26.0 kg/m^2 05/09/2019 7:29p m Results Laboratory Results Test Name Result Units Flags Reference Collection Date/Time Result Date/Time Comments White Blood Count 10.0 K/mm3 3.6-11.1 8:09pm 05/09/2019 8:34pm Red Blood Count 4.66 M/ul 3.69-4.88 05/2019 8:09pm 05/09/2019 8:34pm Hemoglobin 13.3 g/dl 11.4-14.4 9 8:0905/09/2019 8:34pm Hematocrit 39.8 % 33.3-41.4 9 8:09pm 05/09/2019 8:34pm Mean Corpuscular Volume 85.3 fl 79.3-94.8 05/09/2019 8:0905/09/2019 8:34pm Mean Corpuscular Hemoglobin 28.6 pg 26.8-33.2 05/09/2019 8:05/09/2019 8:34pm Mean Corpuscular Hemoglobin Concent 33.6 g/dl 33.5-35.5 9 8:pm 05/09/2019 8:34pm Red Cell Distribution Width 13.7 % 12.0-15.1 9 8:05/09/2019 8:34pm Platelet Count 213 K/mm3 165-353 05/09 8:09pm 05/09/2019 8:34pm Mean Platelet Volume 8.4 fl 7.5-10.6 05/09/2019 8:09pm 05/09/2019 8:34pm Neutrophils (%) (Auto) 74.3 % H 43.2-71.5 05/09/2019 8:pm 05/09/2019 8:34pm Lymphocytes (%) (Auto) 18.9 % 16.8-43.4 05/09/2019 8:pm 05/09/2019 8:34pm Monocytes (%) (Auto) 6.3 % 4.6-12.4 05/09/2019 8:pm 05/09/2019 8:34pm Eosinophils (%) (Auto) 0.4 % L 0.7-7.8 05/09/2019 8:pm 05/09/2019 8:34pm Basophils (%) (Auto) 0.1 % L 0.2-1.2 05/09/2019 8:pm 05/09/2019 8:34pm Neutrophils # (Auto) 7.4 K/mm3 H 1.9-7.2 05/09/2019 8:09pm 05/09/2019 8:34pm Lymphocytes # (Auto) 1.9 K/mm3 1.1-2.7 05/09/2019 8:pm 05/09/2019 8:34pm Monocytes # (Auto) 0.6 K/mm3 0.3-0.8 0 05/09/2019 8:09pm 05/09/2019 8:34pm Eosinophils # (Auto) 0.0 K/mm3 0.0-0.5 05/09/2019 8:09pm 05/09/2019 8:34pm Basophils # (Auto) 0.0 K/mm3 0.0-0.1 0 05/09/2019 8:09pm 05/09/2019 8:34pm Group A Streptococcus (PCR) NOT DETECTED UNDETECTED 05/09/2019 7:34pm 05/09/2019 8:20pm Urine Color Yellow 05/09/20 8:45pm 05/09/2019 9:07pm Urine Appearance Clear 05/2019 8:45pm 05/09/2019 9:07pm Urine Specific Wilder 1.020 1.005-1.030 05/09/2019 8:45pm 05/09/2019 9:07pm Urine pH 6.0 5.0-8.0 05/09/2019 8:45pm 05/09/2019 9:07pm Urine Leukocyte Esterase NEGATIVE Le/uL NEGATIVE 05/09/2019 8:45pm 05/09/2019 9:07pm Urine Nitrite NEGATIVE NEGATIVE 2018 8:45pm 05/09/2019 9:07pm Urine Protein NEGATIVE mg/dL NEGATIVE 2018 8:45pm 05/09/2019 9:07pm Urine Glucose (UA) NEGATIVE mg/dL NEGATIVE 0 05/09/2019 8:45pm 05/09/2019 9:07pm Urine Ketones NEGATIVE mg/dL NEGATIVE 2018 8:45pm 05/09/2019 9:07pm Urine Urobilinogen NEGATIVE mg/dL NEGATIVE 0 05/09/2019 8:45pm 05/09/2019 9:07pm Urine Bilirubin NEGATIVE mg/dL NEGATIVE 05/2019 8:45pm 05/09/2019 9:07pm Urine Blood 2+ mg/dL A NEGATIVE 05/09/20 8:45pm 05/09/2019 9:07pm Urine Ascorbic Acid Level NEGATIVE mg/dL 05/09/2019 8:45pm 05/09/2019 9:07pm Urine Squamous Epithelial Cells 1-5 /hpf 0-5 05/09/2019 8:45pm 05/09/2019 9:07pm Urine RBC 0-2 /hpf 0-2 05/09/2019 8:45pm 05/09/2019 9:07pm Urine WBC 0-5 /hpf 0-5 05/09/2019 8:45pm 05/09/2019 9:07pm Urine Mucus SMALL /lpf 05/09/20 19 8:45pm 05/09/2019 9:07pm Urine HCG, Qualitative Negative Negative 05/09/2019 8:45pm 05/09/2019 9:32pm Monoscreen NEGATIVE NEGATIVE 9 8:09pm 05/09/2019 8:44pm A Negative Barber Result will automatically reflex to an EBV Acute Profile that is sent to [facility]. Sodium Level 139 mmol/L 137-144 019 8:09pm 05/09/2019 8:55pm Potassium Level 3.5 mmol/L 3.1-5.1 05/2019 8:09pm 05/09/2019 8:55pm Chloride Level 105 mmol/L 101-110 05/09 8:09pm 05/09/2019 8:55pm Carbon Dioxide Level 25 mmol/L 22-29 05/09/2019 8:09pm 05/09/2019 8:55pm Glucose Level 91 mg/dL 70-105 2018 8:09pm 05/09/2019 8:55pm Blood Urea Nitrogen 8.0 mg/dL 7.0-18.7 05/09/2019 8:09pm 05/09/2019 8:55pm Creatinine 0.84 mg/dL 0.57-1.11 9 8:05/09/2019 8:55pm Estimated Creatinine Clearance Calc 85.20 mL/min 05/09/2019 8:05/09/2019 8:55pm PT Ht: 152.4cm, PT Wt: 62.4KG Anion Gap 13 mmol/L 7-16 05/09/2019 8:09pm 05/09/2019 8:55pm Calcium Level 9.3 mg/dL 8.4-10.2 2018 8:09pm 05/09/2019 8:55pm Total Bilirubin 0.4 mg/dL 0.1-1.2 05/2019 8:09pm 05/09/2019 8:55pm Total Protein 7.6 g/dL 6.0-8.3 2018 8:09pm 05/09/2019 8:55pm Albumin 4.3 g/dL 3.2-5.2 05/09/2019 8:09pm 05/09/2019 8:55pm Globulin 3.3 g/dL 2.6-4.6 05/09/2019 8:09pm 05/09/2019 8:55pm Albumin/Globulin Ratio 1.3 g/dL 1.1-2.5 05/09/2019 8:09pm 05/09/2019 8:55pm Aspartate Amino Transf (AST/SGOT) 25 U/L 5-34 05/09/2019 8:09pm 05/09/2019 8:55pm Alkaline Phosphatase 73 U/L 40-150 05/09/2019 8:09pm 05/09/2019 8:55pm Alanine Aminotransferase (ALT/SGPT) 13 U/L 0-55 05/09/2019 8:09pm 05/09/2019 8:55pm Lipase 46 U/L 7-78 05/09/2019 8:09pm 05/09/2019 8:55pm Pending Laboratory Results Test Name Collection Date/Time Rosa Maria-Melgar Virus Capsid Ag IgM Ab 05/2019 8:09pm Rosa Maria-Melgar Early Antigen IgG Ab 2018 8:09pm Rosa Maria-Melgar Virus Capsid Ag IgG Ab 05/2019 8:09pm Rosa Maria-Melgar Virus Nuclear Ag Ab 019 8:09pm Rosa Maria-Melgar Virus Interpretation 2018 8:09pm Procedures No procedure information available. Encounters Encounter Location Arrival/Admit Date Discharge/Depart Date Attending Provider Registered Emergency Room [facility] 05/09/19 7:20pm MARLENE LONG PA-C Recent Diagnosis
== END 2023-09-28 14:06 | disposition home or self-care (01) ==
LOC: HO.HWSM 13:03
PROVIDERS: PCP Nurse Practitioner Family; Visit Provider Advanced Practice Midwife
DX: Z01.419 Encounter for gynecological examination (general) (routine) without abnormal findings (principal); Z12.4 Encounter for screening for malignant neoplasm of cervix; Z11.3 Encounter for screening for infections with a predominantly sexual mode of transmission; Z98.891 History of uterine scar from previous surgery; Z39.1 Encounter for care and examination of lactating mother; Z30.011 Encounter for initial prescription of contraceptive pills
CPT/HCPCS: 99385

== ENCOUNTER 2023-09-28 13:03 | Outpatient (REF) | payer OTHER, SELFPAY ==
[2023-09-29 06:02] LABS: CT PCR NOT DETECTED (Not Detect.); NG PCR NOT DETECTED (Not Detect.)
[2023-09-29 12:30] LABS: BV Int Neg Control Negative (Negative); BV Int Pos Control Positive (Positive)
== END 2023-09-28 13:04 | disposition home or self-care (01) ==
LOC: HO.LNP 13:03
PROVIDERS: PCP Nurse Practitioner Family; Visit Provider Advanced Practice Midwife
DX: Z01.419 Encounter for gynecological examination (general) (routine) without abnormal findings (principal); Z98.891 History of uterine scar from previous surgery; Z39.1 Encounter for care and examination of lactating mother; Z20.2 Contact with and (suspected) exposure to infections with a predominantly sexual mode of transmission
CPT/HCPCS: 0353U; 87480; 87510; 87660; 88142

== ENCOUNTER 2023-10-06 10:43 | Outpatient (AMB) | payer OTHER, SELFPAY ==
--- NOTE | 2023-10-06 10:48 | A.OFFPC_ITS ---
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: No Accompanied by: Self / Same As Patient Allergies No Known Allergies Allergy (Verified 10/06/23 10:59) Medication List - Last Reconciled 10/06/23 by Osvaldo Jimenez CNP norethindrone (contraceptive) 0.35 mg PO DAILY PNV,calcium 87-gnso-cartc acid 27 mg iron- 1 mg ( Vitamins Plus Low Iron) 1 tab PO DAILY Tobacco use date assessed: 10/06/23 Dental Screening Dental Screen Date: 10/06/23 Did you have a dental visit in the last 12 months?: Yes Did you have a dental problem in the last 6 months where you did not have access to dental care?: No Was dental information given to patient?: Patient has dentist HPI HPI Comments History of Present Illness Details 28-year-old female presents for an exten ded physical exam She brought her 8-month-old son to the appointment Reports h/o right anterior hip pain. She notes intermittent pain with ambulation and ROM of the right hip. No fall, injury, or trauma. No tingling or numbness. No tingling or numbness. She is currently not taking any pain medication because she is currently . She had PT in the past She is currently on oral contraceptives and vitamins Nonsmoker, nondrinker, no recreational drug use She is , sexually active, and has no concerns for STD Last Pap smear test was on 09/28/2023: Result pending [facility] Medical History (Updated 10/06/23 @ 11:25 by Osvaldo Jimenez CNP) delivery delivered Hip pain, right Neck pain Back pain Surgical History (Updated 09/28/23 @ 13:[address] CNM) Hx of section No pertinent past surgical history Social History Housing: House Patient Tobacco Use Status: Never used Tobacco e-Cigarette/Vaping Use: Never Used service: Yes Current occupational status: employed Current occupation: [email or web address] Cognitive needs: No Hearing needs: No Vision needs: No Female Reproductive History Menstrual Age of Menarche: 11 Questionnaire PHQ-9 Over the last 2 weeks, how often have you been bothered by any of the following problems? 1. Little interest or pleasure in doing things: not at all 2. Feeling down, depressed, or hopeless: not at all 3. Trouble falling or staying asleep, or sleeping too much: not at all 4. Feeling tired or having little energy: several days 5. Poor appetite or overeating: not at all 6. Feeling bad about yourself - or that you are a failure or have let yourself or your family down: not at all 7. Trouble concentrating on things, such as reading the newspaper or watching television: not at all 8. Moving or speaking so slowly that other people could have noticed. Or the opposite - being so fidgety or restless that you have been moving around a lot m ore than usual: not at all 9. Thoughts that you would be better off or of hurting yourself in some way: not at all Total score: 1 Depression Screening Interpretation: Negative Depression Screening Done: Yes 74220 - PHQ-9 Billing: Yes Source: Developed by Drs. Zeferino Simms, Xiomara Eduardo, Oscar Miranda and colleagues, with an educational pierre from [employer]. Thrive Questionnaire Date Thrive assessed: 10/06/23 I am a: Patient What is your living situation today?: I have a steady place to live Within the past 12 months, did the food you bought not last and you didn't have the money to get more?: Never true Within the past 12 months, did you worry whether your food would run out before you got money to buy more?: Never true Do you have trouble paying for medicines?: No Do you have trouble getting transportation to medical appointments?: No Do you have trouble paying your heating and electricity bill?: No Do you have trouble taking care of your child, family member or friend?: No Do you have trouble with day-to-day activities such as bathing, preparing meals, shopping, managing finances, etc.?: No Are you currently unemployed and looking for a job?: No Are you interested in more education?: Yes Please select the resources that you would like help with: Education Currently or been in a relationship where the following occur: no concerns reported THRIVE Score: 0 AUDIT C Alcohol Use Questionnaire (AUDIT-C) 1. How often do you have a drink containing alcohol?: Never 3. How often do you have six or more drinks on one occasion?: Never Total Score: 0 ANH-7 AMB Questionnaire ANH-7 Date ANH - 7 assessed: 10/06/23 Feeling nervous, anxious, or on edge: 0 = Not at all Not being able to stop or control worryin = Not at all Worrying too much about different things: 1 = Several days Trouble relaxin = Several days Being so restless that it is hard to sit still: 0 = Not at all Becoming easily annoyed or irritable: 0 = Not at all Feeling afraid as if something awful might happen: 1 = Several days Total ANH-7 score (0-4 normal; 5-9 mild; 10-14 moderate; 15-21 severe): 3 Source: Developed by Drs. Zeferino Simms, Xiomara Eduardo, Oscar Miranda and colleagues, with an educational pierre from [employer]. ANH-7 Assessment Billing ANH-7 Assessment Tool: ANH-7 Assessment 45781 Review of Systems Const Details: Denies chills, Denies fatigue, Denies fever(s), Denies headache(s) and Denies weakness HEENT Denies change in vision, Denies dizziness, Denies headache(s), Denies hearing loss, Denies nasal congestion, Denies sinus pain, Denies sinus pressure and Denies sore throat Card Denies chest pain, Denies lightheadedness, Denies dyspnea and Denies other (palpitations) Resp Denies cough, Denies dyspnea and Denies wheezing GI Denies abdominal pain, Denies melena, Denies hematochezia, Denies change in bowel habits, Denies dyspepsia and Denies nausea Denies hematuria and Denies dysuria Musc Reports as per HPI Skin/Breast Denies rash, Denies unusual bruising and Denies wounds Neuro Denies abnormal gait, Denies dizziness, Denies headache(s), Denies memory loss, Denies numbness, Denies Sensory deficit (Neuro), Denies tingling and Denies weakness Psych Denies anxiety, Denies depression and Denies memory loss Endo Denies cold intolerance, Denies fatigue, Denies heat intolerance, Denies polydipsia and Denies polyuria Leif/Lymph Denies easy bleeding and Denies easy bruising Aller/Immun Denies wheezing Physical exam (Primary Care) Vital Signs: Last Vital Signs Temp 97.1 F 10/06/23 10:49 Pulse 75 10/06/23 10:49 Resp 13 10/06/23 10:49 BP 116/60 10/06/23 10:49 Pulse Ox 99 10/06/23 10:49 Oxygen Delivery Method Room Air 10/06/23 10:49 BMI result Body Mass Index 29.3 Tobacco/Smoking Status: Tobacco use Status Tobacco use date assessed 01/09/23 10/06/23 10:48 Patient Tobacco Use Status Never used Tobacco 10/06/23 10:48 e-Cigarette/Vaping Use Never Used 10/06/23 10:48 Depression Screening Interpretation: Negative Thrive Assessment: Date of Thrive Assessment Date Thrive assessed 01/09/23 10/06/23 10:48 Currently or been in a relationship where the following occur: no concerns reported Const Other: General: no acute distress, well developed, alert and awake Nutritional Appearance: well nourished Orientation/consciousness: patient oriented x3 HENMT Head: Yes normocephalic and Yes atraumatic Ears: hearing grossly normal bilaterally and TM's normal bilaterally General nose exam: Normal external nose present and Normal nares present Mouth: Normal oral and palatal mucosa present and moist mucous membranes Teeth and gingiva: dentition normal Throat: Yes oropharynx normal Eyes Pupils: Equal, round and reactive pupils present and Pupil accommodation reflex normal EOM: EOMs intact bilaterally Neck Neck: Yes normal visual inspection, Yes no lymphadenopathy and Yes trachea midline Thyroid: Thyroid normal Carotids: no bruits Lymphatic: no lymphadenopathy noted Chest Chest palpation & inspection: normal inspection of the chest Resp Effort & Inspection: normal respiratory effort Auscultation: clear to auscultation bilaterally Cardio Rate: regular rate Rhythm: regular rhythm Heart sounds: S1 normal heart sound present, S2 normal heart sound present, no gallops, no murmurs and no rubs Bruits: no abdominal aortic bruits and no carotid bruits GI Palpation (GI): No Abdominal aortic bruit present, Soft to palpation, nontender, No hepatosplenomegaly present and No Rebound tenderness present Auscultation: normal bowel sounds General: Yes no CVA tenderness Back/Spine/Pelvis Back: no CVA tenderness Cervical Spine: cervical ROM normal and No Cervical spine tenderness Thoracic/Lumbar Spine: thoraco-lumbar ROM normal, No pain with thoraco-lumbar ROM, No thoracic spinal tenderness and No lumbar spinal tenderness Skin General: warm and dry. Normal skin color. Normal skin turgor Lesions: no lesions Rashes: no rashes Trauma: no lacerations or abrasions Wounds: no wounds Nails: normal Neuro General: patient oriented x3, gait normal and CN's II-XI intact bilaterally Cranial nerves: Yes Equal, round and reactive pupils present Cognition (Neuro): normal cognition Gait exam (Neuro): Normal gait present Motor exam (neuro): 5/5 motor strength present throughout Sensory Exam: No Sensory deficit (Neuro) Deep tendon reflexes (DTR's): Right patellar reflex intensity grade: 2+ and Left patellar reflex intensity grade: 2+ Extrem General: Yes normal to inspection, No edema and No calf tenderness Negative straight leg raise bilaterally Psych Appearance: grossly normal Affect: normal affect Attitude: cooperative Thought process: Normal thought process present Assessment and Plan Assessment & Plan (1) Normal physical examination, routine: Code(s): Z00.00 - Encounter for general adult medical examination without abnormal findings Plan: No significant physical restrictions or limitations noted Continue current treatment regimen Healthy diet and routine exercise encouraged Follow-up in 3-4 weeks for a telehealth visit for hyperlipidemia Return sooner with symptoms or concerns Verbalized understanding and agreed with treatment plan (2) Hyperlipidemia: Code(s): E78.5 - Hyperlipidemia, unspecified Plan: Recent triglycerides, cholesterol, and LDL levels last May were elevated, 200, 241, and 135 respectively Advised to limit foods high in saturated fat and avoid foods high in trans fat Routine exercise encouraged Will recheck lipid panel. Advised to fast for 10-12 hours, may drink water only, and get blood work done before next visit Follow-up 3-4 weeks for telehealth visit Verbalized understanding and agreed with treatment plan (3) Hip pain, right: Code(s): M25.551 - Pain in right hip Plan: Acute on chronic right hip pain, worse with ROM and ambulation No overt injury or trauma May take Tylenol for pain or discomfort Referred to physical therapy Follow-up with worsening or new symptoms Verbalized understanding and agreed with treatment plan Orders: Orders PT Evaluation and Treatment Today M25.551 - Pain in right hip Lipid Panel Today E78.5 - Hyperlipidemia, unspecified Coding Level of Care Code Est Pt Prev Care 18-39y(16785) Diagnoses Normal physical examination, routine Z00.00 Hyperlipidemia E78.5 Hip pain, right M25.551 Additional Codes ANH-7 Assessment Billing - ANH-7 Assessment Tool: ANH-7 Assessment [id number] ([id number])
[2023-10-06 10:49] VITALS: BP 116/60; PULSE 75; RESP 13; TEMP 36.2; O2SAT 99; BMI 29.3
== END 2023-10-06 12:25 | disposition home or self-care (01) ==
PROVIDERS: PCP Nurse Practitioner Family; Visit Provider Nurse Practitioner Family
DX: Z00.00 Encounter for general adult medical examination without abnormal findings (principal); E78.5 Hyperlipidemia, unspecified; M25.551 Pain in right hip
CPT/HCPCS: 99395

== ENCOUNTER 2023-12-07 10:31 | Outpatient (AMB) | payer OTHER, SELFPAY ==
--- NOTE | 2023-12-07 10:33 | A.OFFPC_ITS ---
Vital Signs 12/07/23 10:34 Height 5 ft Weight 143 lb BMI 27.9 BP 130/60 Blood Pressure Location Rt brachial Position Sitting Pulse 76 Pulse Source Pulse Oximeter Pulse Oximetry (%) 96 Oxygen Delivery Method Room Air Intake Visit Reasons: 3-4 week f/u; pt req in person Intake Note: Patient is here today for [employer] to work forms to be filled out. 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 Required: No Tire Fabricator: Not Required per policy Accompanied by: Self / Same As Patient Allergies No Known Allergies Allergy (Verified 12/07/23 10:45) Medication List - Last Reconciled 12/07/23 by Osvaldo Jimenez, SALES REPRESENTATIVE [employer] PNV,calcium 19-spxi-menca acid 27 mg iron- 1 mg ( Vitamins Plus Low Iron) 1 tab PO DAILY Tobacco use date assessed: 12/07/23 Dental Screening Dental Screen Date: 10/06/23 HPI HPI Comments History of Present Illness Details 28-year-old female presents for hyperlip idemia follow-up She did not get lipid panel blood work done She is on daily oral contraceptives She offers no complaints and denies acute symptoms at this time She brought paperwork for telephone [facility] for [place] to be signed by her PCP [facility] Medical History (Updated 10/14/23 @ 11:[address] CNM) delivery delivered Hip pain, right Neck pain Back pain Surgical History (Updated 12/07/23 @ 10:40 by CONCETTA Langston) Hx of section Social History Housing: House Patient Tobacco Use Status: Never used Tobacco e-Cigarette/Vaping Use: Never Used Second Hand Smoke Exposure: No service: Yes Current occupational status: employed Current occupation: [employer] Cognitive needs: No Hearing needs: No Vision needs: No Female Reproductive History Menstrual Age of Menarche: 11 Questionnaire Thrive Questionnaire Date Thrive assessed: 10/06/23 ANH-7 AMB Questionnaire ANH-7 Date ANH - 7 assessed: 10/06/23 Source: Developed by Drs. Zeferino Simms, Xiomara Eduardo, Oscar Miranda and colleagues, with an educational pierre from [employer]. Review of Systems Const Details: Const Denies chills, Denies fatigue, Denies fever(s), Denies headache(s) and Denies weakness ENT Denies dizziness and Denies headache(s) Card Denies chest pain, Denies lightheadedness, Denies dyspnea and Denies other (Palpitations) Resp Denies cough, Denies dyspnea, Denies wheezing and Denies other ( shortness of breath) GI Denies abdominal pain, Denies melena, Denies hematochezia, Denies change in bowel habits, Denies dyspepsia and Denies nausea Denies hematuria and Denies dysuria Musc Denies abnormal gait, Denies myalgias, Denies arthralgias, Denies numbness and Denies tingling Skin/Breast Denies rash, Denies unusual bruising and Denies wounds Neuro Denies abnormal gait, Denies dizziness, Denies headache(s), Denies memory loss, Denies numbness, Denies Sensory deficit (Neuro), Denies tingling and Denies weakness Psych Denies anxiety, Denies depression, Denies memory loss Endo Denies cold intolerance, Denies fatigue, Denies heat intolerance, Denies polydipsia and Denies polyuria Aller/Immun Denies wheezing Physical exam (Primary Care) Vital Signs: Last Vital Signs Pulse 76 12/07/23 10:34 BP 130/60 12/07/23 10:34 Pulse Ox 96 12/07/23 10:34 Oxygen Delivery Method Room Air 12/07/23 10:34 BMI result Body Mass Index 27.9 Tobacco/Smoking Status: Tobacco use Status Tobacco use date assessed 12/07/23 12/07/23 10:42 Patient Tobacco Use Status Never used Tobacco 12/07/23 10:42 e-Cigarette/Vaping Use Never Used 12/07/23 10:42 Thrive Assessment: Date of Thrive Assessment Date Thrive assessed 10/06/23 12/07/23 10:42 Const Other: General: no acute distress and well developed Nutritional Appearance: well nourished Orientation/consciousness: patient oriented x3 HENMT Head: Yes normocephalic and Yes atraumatic Eyes General: appearance normal, both eyes and all related structures Pupils: Equal, round and reactive pupils present EOM: EOMs intact bilaterally Resp Effort & Inspection: normal respiratory effort Auscultation: clear to auscultation bilaterally Cardio Rate: regular rate Rhythm: regular rhythm Heart sounds: S1 normal heart sound present, S2 normal heart sound present, no gallops, no murmurs and no rubs GI Palpation (GI): No Abdominal aortic bruit present, Soft to palpation, nontender, No hepatosplenomegaly present and No Rebound tenderness present Auscultation: normal bowel sounds General: Yes no CVA tenderness Back/Spine/Pelvis Back: no CVA tenderness Cervical Spine: cervical ROM normal and No Cervical spine tenderness Thoracic/Lumbar Spine: thoraco-lumbar ROM normal, No pain with thoraco-lumbar ROM, No thoracic spinal tenderness and No lumbar spinal tenderness Extrem General: Yes normal to inspection, No edema and No calf tenderness Skin General: warm and dry. Normal skin color. Normal skin turgor Neuro General: patient oriented x3, gait normal and no focal neuro deficit Cranial nerves: Yes Equal, round and reactive pupils present Cognition (Neuro): normal cognition Gait exam (Neuro): Normal gait present Sensory Exam: No Sensory deficit (Neuro) Psych Appearance: grossly normal Affect: normal affect Attitude: cooperative Thought process: Normal thought process present Assessment and Plan Assessment & Plan (1) Hyperlipidemia: Code(s): E78.5 - Hyperlipidemia, unspecified Plan: She forgot to get lipid panel blood work done but will do so today as she has been fasting Advised to limit foods high in saturated fat and avoid foods high in trans fat Routine exercise encouraged Paperwork for [facility] filled out and signed by her PCP Follow-up for telehealth visit in 2-3 weeks or return sooner with symptoms or concerns Verbalized understanding and agreed with treatment plan Coding Level of Care Code Est Pt Level 4 (56297) Diagnoses Hyperlipidemia E78.5
[2023-12-07 10:34] VITALS: BP 130/60; PULSE 76; O2SAT 96; BMI 27.9
== END 2023-12-07 11:19 | disposition home or self-care (01) ==
PROVIDERS: PCP Nurse Practitioner Family; Visit Provider Nurse Practitioner Family
DX: E78.5 Hyperlipidemia, unspecified (principal)
CPT/HCPCS: 99214

== ENCOUNTER 2023-12-07 11:13 | Outpatient (REF) | payer OTHER, SELFPAY ==
[2023-12-07 15:38] LABS: Cholesterol 149 mg/dL (<200); HDL Cholesterol 57 mg/dL (>40); LDL Cholesterol Calculated 84 mg/dL (<100); Triglycerides 42 mg/dL (<150)
== END 2023-12-07 11:14 | disposition home or self-care (01) ==
LOC: HO.WFDLDS 11:13
PROVIDERS: Visit Provider Nurse Practitioner Family
DX: E78.5 Hyperlipidemia, unspecified (principal)
CPT/HCPCS: 36415; 80061

== ENCOUNTER 2024-01-01 16:04 | Outpatient (AMB) | payer OTHER, SELFPAY ==
--- NOTE | 2024-01-01 14:52 | A.OFFPC_ITS ---
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 Required: No Accompanied by: Self / Same As Patient Allergies No Known Allergies Allergy (Verified 01/01/24 16:02) Tobacco use date assessed: 12/07/23 Dental Screening Dental Screen Date: 10/06/23 HPI HPI Comments History of Present Illness Details 28-year-old female presents for a [facility] visit for review of recent lipid panel blood work She offers no complaints and denies acute symptoms at this time [facility] Medical History (Updated 10/14/23 @ 11:[address] CNM) delivery delivered Hip pain, right Neck pain Back pain Surgical History (Updated 12/07/23 @ 10:40 by CONCETTA Langston) Hx of section Social History Housing: House Patient Tobacco Use Status: Never used Tobacco e-Cigarette/Vaping Use: Never Used Second Hand Smoke Exposure: No service: Yes Current occupational status: employed Current occupation: [employer] Cognitive needs: No Hearing needs: No Vision needs: No Female Reproductive History Menstrual Age of Menarche: 11 Questionnaire Thrive Questionnaire Date Thrive assessed: 10/06/23 ANH-7 AMB Questionnaire ANH-7 Date ANH - 7 assessed: 10/06/23 Source: Developed by Drs. Zeferino Simms, Xiomara Eduardo, Oscar Miranda and colleagues, with an educational pierre from [employer]. Review of Systems Const Details: Const Denies chills, Denies fatigue, Denies fever(s), Denies headache(s) and Denies weakness ENT Denies dizziness and Denies headache(s) Card Denies chest pain, Denies lightheadedness, Denies dyspnea and Denies other (Palpitations) Resp Denies cough, Denies dyspnea, Denies wheezing and Denies other ( shortness of breath) GI Denies abdominal pain, Denies melena, Denies hematochezia, Denies change in bowel habits, Denies dyspepsia and Denies nausea Denies hematuria and Denies dysuria Musc Denies abnormal gait, Denies myalgias, Denies arthralgias, Denies numbness and Denies tingling Skin/Breast Denies rash, Denies unusual bruising and Denies wounds Neuro Denies abnormal gait, Denies dizziness, Denies headache(s), Denies memory loss, Denies numbness, Denies Sensory deficit (Neuro), Denies tingling and Denies weakness Psych Denies anxiety, Denies depression, Denies memory loss Endo Denies cold intolerance, Denies fatigue, Denies heat intolerance, Denies polydipsia and Denies polyuria Aller/Immun Denies wheezing Physical exam (Primary Care) Tobacco/Smoking Status: Tobacco use Status Tobacco use date assessed 12/07/23 01/01/24 14:53 Patient Tobacco Use Status Never used Tobacco 01/01/24 14:53 e-Cigarette/Vaping Use Never Used 01/01/24 14:53 Thrive Assessment: Date of Thrive Assessment Date Thrive assessed 10/06/23 01/01/24 14:53 Const Other: Telehealth. No physical exam Telehealth Telehealth Telehealth Platform: Telephone Location of provider rendering services: practice address Location of patient: address on file Patient Identification confirmed using: Name, : Yes Telehealth method: voice only Patient verbally consented to treatment: Yes Patient verbally consented to billing insurance company: Yes Patient informed of any privacy concerns related to visit: Yes Minutes spent on Phone/Video with Pt.: 10 Assessment and Plan Assessment & Plan (1) Hyperlipidemia: Code(s): E78.5 - Hyperlipidemia, unspecified Plan: Recent lipid panel levels are normal Advised to limit foods high in saturated fat and avoid foods high in trans fat Routine exercise encouraged Advised to get fasting blood work done before next visit Follow-up in 1 month for an extended physical exam or return sooner with symptoms or concerns Verbalized understanding and agreed with treatment plan (2) Laboratory tests ordered as part of a complete physical exam (CPE): Code(s): Z00.00 - Encounter for general adult medical examination without abnormal findings Plan: Fasting labs ordered in preparation of a complete physical exam. Advised to fast for at least 10 hours before getting labs drawn. May drink water Verbalized understanding and agreed with treatment plan. Orders: Orders Complete Blood Count Auto Diff Today Z00.00 - Encounter for general adult medical examination without abnormal findings Comprehensive [place]. Panel Fast Today Z00.00 - Encounter for general adult medical examination without abnormal findings UA CC w/rflx Micro + Cult Today Z00.00 - Encounter for general adult medical examination without abnormal findings TSH reflex Free T4 Today Z00.00 - Encounter for general adult medical examination without abnormal findings Coding Level of Care Code Tele Est Pt Level 2 (16965) Diagnoses Hyperlipidemia E78.5 Laboratory tests ordered as part of a complete physical exam (CPE) Z00.00
== END 2024-01-01 17:18 | disposition home or self-care (01) ==
LOC: HO.HMGFM 16:04
PROVIDERS: PCP Nurse Practitioner Family; Visit Provider Nurse Practitioner Family
DX: E78.5 Hyperlipidemia, unspecified (principal)
CPT/HCPCS: 99212